=== PATIENT | female | born 1940 | race Caucasian/White ===

== ENCOUNTER 2018-12-31 19:16 | Inpatient (IN) | payer MEDICARE, BC ==
[~2018-12-31] VITALS: Ht 162.6 cm; Wt 86.2 kg
[~2018-12-31 19:16] MED LIST: CETIRIZINE HCL5 MG PO; HYDROCODONE-APA1 TAB PO; NORVASC10 MG PO; PRAVACHOL20 MG PO; PRILOSEC10 MG PO; PRINIVIL20 MG PO
[2018-12-31 20:01] LABS: BASOPHILS 0.4 % (0-2); EOSINOPHILS 1.7 % (0-7); HEMATOCRIT 40.9 % (36.0-48.0); HEMOGLOBIN 13.3 g/dL (12-16); IMMATURE GRANULOCYTES 0.3 % (0-5); LYMPHOCYTES 17.1 % (15-50); MCHC 32.5 g/dL (31.0-37.0); MCV 83.1 fL (80.0-100.0); MEAN PLATELET VOLUME 9.7 fL (7.4-10.4); MONOCYTES 6.3 % (2-11); NEUTROPHILS 74.2 % (40-80); PLATELET COUNT 306 10x3/uL (130-400); RBC 4.92 10x6/uL (4.00-5.40); RDW 14.3 % (11.5-14.5)
[2018-12-31 20:15] LABS: ALBUMIN 3.9 g/dL (3.4-5.0); ALKALINE PHOSPHATASE 127 U/L (46-116); ALT (SGPT) 17 U/L (10-68); BILIRUBIN - TOTAL 0.42 mg/dL (0.2-1.3); CALC OSMOLALITY 281 mosm/kg (275-300); CALCIUM 9.6 mg/dL (8.5-10.1); CARBON DIOXIDE 25.7 mmol/L (21.0-32.0); CHLORIDE - SERUM 103 mmol/L (98-107); CREATININE - SERUM 0.7 mg/dL (0.6-1.3); GLUCOSE 185 mg/dL (74-106); POTASSIUM - SERUM 3.4 mmol/L (3.5-5.1); PROTEIN - SERUM 8.2 g/dL (6.4-8.2); SODIUM 140 mmol/L (136-145); UREA NITROGEN 7 mg/dL (7-18); eGFR NON AFRICAN AMERICAN 86 mL/min (90-120)
--- NOTE | 2018-12-31 23:50 | NUR ---
RECEIVED PT VIA STRETCHER FROM ER. SLIGHTLY SEDATED. STATES SHE HASNT HAD A BM IN 12 DAYS. FALLING ASLEEP DURING INTERVIEW. ACCOMPANIED BY AUADRIENNE AND OTHER FAMILY. DENIES PAIN AT THIS TIME. NS @ 100 MLHR INFUSING IN RT AC. ROSY ALARM IN USE FOR PT SAFETY. RESP EVEN AND NONLABORED. SR ELEVATED X2. CL IN REACH.
[2019-01-01] VITALS (13 sets, daily range): BP systolic 117–147; BP diastolic 56–88; Ht 162.6 cm; Wt 86.2 kg
[2019-01-01 04:46] LABS: BASOPHILS 0.4 % (0-2); EOSINOPHILS 0.9 % (0-7); HEMATOCRIT 39.2 % (36.0-48.0); HEMOGLOBIN 12.4 g/dL (12-16); IMMATURE GRANULOCYTES 0.2 % (0-5); LYMPHOCYTES 25.9 % (15-50); MCH 26.5 pg (26.0-34.0); MCHC 31.6 g/dL (31.0-37.0); MCV 83.8 fL (80.0-100.0); MEAN PLATELET VOLUME 9.9 fL (7.4-10.4); MONOCYTES 9.3 % (2-11); NEUTROPHILS 63.3 % (40-80); PLATELET COUNT 298 10x3/uL (130-400); RBC 4.68 10x6/uL (4.00-5.40); RDW 14.4 % (11.5-14.5)
[2019-01-01 04:56] LABS: INR 1.06 (0.85-1.17); PROTIME 13.3 SECONDS (11.6-15.0)
[2019-01-01 04:59] LABS: CALC OSMOLALITY 280 mosm/kg (275-300); CALCIUM 8.7 mg/dL (8.5-10.1); CARBON DIOXIDE 27.6 mmol/L (21.0-32.0); CHLORIDE - SERUM 105 mmol/L (98-107); CREATININE - SERUM 0.6 mg/dL (0.6-1.3); GLUCOSE 120 mg/dL (74-106); MAGNESIUM - SERUM 2.4 mg/dL (1.8-2.4); PHOSPHOROUS 3.5 mg/dL (2.5-4.9); POTASSIUM - SERUM 3.3 mmol/L (3.5-5.1); SODIUM 142 mmol/L (136-145); UREA NITROGEN 5 mg/dL (7-18); eGFR NON AFRICAN AMERICAN > 90 mL/min (90-120)
--- NOTE | 2019-01-01 11:43 | NUR ---
MULTIPLE FAMILY IN ROOM. WOULD LIKE TO SEE A DR ABOUT SURGERY. TOLD THEM BREVING WOULD BE ROUNDING AFTER NOON. CL IN REACH. DENIES NEEDS AT THIS TIME. AUDRA
[2019-01-01 11:54] LABS: HEMATOCRIT 36.6 % (36.0-48.0); HEMOGLOBIN 11.4 g/dL (12-16); MCH 26.3 pg (26.0-34.0); MCHC 31.1 g/dL (31.0-37.0); MCV 84.5 fL (80.0-100.0); RBC 4.33 10x6/uL (4.00-5.40); RDW 14.4 % (11.5-14.5); WBC 9.4 10x3/uL (4.8-10.8)
[2019-01-01 11:59] LABS: APTT 31.5 SECONDS (22.8-39.4); INR 1.11 (0.85-1.17); PROTIME 13.8 SECONDS (11.6-15.0)
[2019-01-01 12:04] LABS: % SATURATION 8 % (15-55); IRON 26 ug/dl (35-150); TOTAL IRON BIND CAPACITY 321 ug/dl (260-445); UNSAT IRON BIND CAPACITY 295 ug/dl (150-375)
--- NOTE | 2019-01-01 19:30 | NUR ---
REPORT RECEIVED FROM NURSE SYLWIA. INITIAL ASSESSMENT COMPLETE PT SLEEPY BUT EASILY AROUSEABLE ORIENTED TIMES 4. DENIES PAIN OR SOB STATES "IM JUST SLEEPY". RESP EVEN NONLABORED SHALLOW ENCOURAGED TO TCDB AND INSTRUCTED ON HOW TO SPLINT ABD SURGICAL SITE TO HELP WITH DISCOMFORT. ON 4 LPM O2 PER NC. O2 SAT 94%. BREATH SOUNDS CLEAR DIMINISHED BASILAR. ABD QUIET NEW COLOSTOMY NOTED STOMA BRIGHT PINK AND MOIST MID UPPER ABD WITH BAG INTACT SOME GAS AND SMALL AMOUNT OF LIQUID BROWN STOOL NOTED. JONES PATENT WITH YELLOW URINE IN TUBING AND BSD. SKIN W/D INTACT. SIDERAILS UP TIMES 2 FOR BED MOBILITY AND SAFETY. CALL LIGHT IN REACH. CM READING SR WITH ALARMS ON AND AUDIBLE.
--- NOTE | 2019-01-01 20:00 | NUR ---
FAMILY AT BEDSIDE FOR VISITATION TALKING WITH PT. UPDATE GIVEN AND QUESTIONS ANSWERED. PT TALKING WITH FAMILY BUT DOES DOSE OFF STILL SLEEPY
--- NOTE | 2019-01-01 22:00 | NUR ---
PTT RESULTED SEE NO CHANGE PER PROTOCOL SEE IV FLOWSHEET AND EMAR. WILL CHECK LABS IN AM. PT RESTING QUIETLY WITH EYES CLOSED VSS DENIES PAIN STILL SLEEPY.
--- NOTE | 2019-01-01 23:00 | NUR ---
REASSESSMENT MADE NO CHANGES PT DENIES PAIN ONLY C/O SORENESS IN ABD. VSS SEE ASSESSMENT FLOWSHEET
[2019-01-02] VITALS (13 sets, daily range): BP systolic 92–144; BP diastolic 63–77
--- NOTE | 2019-01-02 01:00 | NUR ---
CHECKING ON PT RESTING WITH EYES CLOSED NO DISTRESS NOTED VSS
--- NOTE | 2019-01-02 03:00 | NUR ---
REASSESSMENT MADE NO CHANGES PT DENIES PAIN VS
--- NOTE | 2019-01-02 05:00 | NUR ---
SON AT BEDSIDE UPDATE GIVEN
[2019-01-02 05:10] LABS: APPEARANCE CLOUDY (CLEAR); COLOR YELLOW (YELLOW)
[2019-01-02 05:11] LABS: AMORPHOUS SEDIMENT >1+ /lpf (NONE SEEN); BACTERIA MANY /hpf (NONE SEEN); BILIRUBIN NEGATIVE (NEGATIVE); EPITHELIAL CELLS 0-5 /hpf (0-5); GLUCOSE 50 mg/dL (NEGATIVE); KETONE LARGE mg/dL (NEGATIVE); NITRITE NEGATIVE (NEGATIVE); PROTEIN NEGATIVE (NEGATIVE); UROBILINOGEN NORMAL (NORMAL); WHITE CELLS - URINE 0-5 /hpf (0-5)
[2019-01-02 05:39] LABS: BASOPHILS 0.1 % (0-2); EOSINOPHILS 0 % (0-7); HEMATOCRIT 33.2 % (36.0-48.0); HEMOGLOBIN 10.4 g/dL (12-16); IMMATURE GRANULOCYTES 0.3 % (0-5); LYMPHOCYTES 9.2 % (15-50); MCH 26.4 pg (26.0-34.0); MCHC 31.3 g/dL (31.0-37.0); MCV 84.3 fL (80.0-100.0); MEAN PLATELET VOLUME 9.8 fL (7.4-10.4); MONOCYTES 9.7 % (2-11); NEUTROPHILS 80.7 % (40-80); PLATELET COUNT 270 10x3/uL (130-400); RBC 3.94 10x6/uL (4.00-5.40); RDW 14.4 % (11.5-14.5); WBC 13.4 10x3/uL (4.8-10.8)
[2019-01-02 05:53] LABS: ANION GAP 10.3 mmol/L (8-16); CALCIUM 8.1 mg/dL (8.5-10.1); CARBON DIOXIDE 29.4 mmol/L (21.0-32.0); MAGNESIUM - SERUM 1.8 mg/dL (1.8-2.4); PHOSPHOROUS 2.7 mg/dL (2.5-4.9); POTASSIUM - SERUM 3.7 mmol/L (3.5-5.1)
--- NOTE | 2019-01-02 06:00 | NUR ---
DR LU AT BEDSIDE SPEAKING WITH PT AND SON. INFORMED THE STAFF GENETIC COUNSELOR MORPHINE HE HAD ORDERED LAST PM WAS NOT STARTED PT HAD DENIED PAIN AND REFUSED PAIN MED SAYING SHE WAS SORE BUT NOT IN PAIN. NO S/S OF PAIN OR DISCOMFORT. HE STATED GOOD HE WOULD JUST START HER ON SOMETHING ELSE PRN INSTEAD OF STAFF GENETIC COUNSELOR
--- NOTE | 2019-01-02 06:00 | NUR ---
PT AND SON ASKING IF PT WAS BEING TRANSFERRED TO FLOOR TODAY I TOLD THEM NOT SURE BREVING CAME IN LOOKED AT ABD THEN LEFT UNIT AWAITING HIS ORDERS
[2019-01-02 06:07] LABS: CREATININE - SERUM 0.8 mg/dL (0.6-1.3)
--- NOTE | 2019-01-02 07:05 | NUR ---
PTT IS 103.9. PER HEPARIN GTT PROTOCOL, WAS PAUSED FOR 30 MIN THEN RATE DECREASED FROM 1300 U/H TO 1100 U/H. RECHECK SCHEDULED FOR 6H POST. NO ACUTE DISTRESS NOTED. PT UP IN BED AWAKE. DENIES ANY NEEDS. WILL CONTINUE PLAN OF CARE.
--- NOTE | 2019-01-02 09:40 | NUR ---
UP IN BED AWAKE AT THIS TIME VISITING WITH FAMILY. NO ACUTE DISTRESS NOTED. PT DENIES ANY NEEDS. CALL LIGHT IN REACH. WILL CONTINUE PLAN OF CARE.
--- NOTE | 2019-01-02 11:47 | NUR ---
UP IN BED VISITING WITH FAMILY AT THIS TIME. NO ACUTE DISTRESS NOTED. VSS. WILL CONTINUE PLAN OF CARE.
--- NOTE | 2019-01-02 13:30 | NUR ---
NOTED PTT IS 44.4, HEPARIN GTT RATE INCREASED 100 U/H FROM 1100 U/H TO 1200 U/H. RECHECK SCHEDULED FOR 6H POST DRAW TIME. NO ACUTE DISTRESS NOTED. WILL CONTNIUE PLAN OF CARE.
--- NOTE | 2019-01-02 15:59 | NUR ---
BED BATH PROVIDED AT THIS TIME USING HIBICLENS. TOTAL LINEN CHANGE ALSO PROVIDED. JONES CARE PROVIDED USING HIBICLENS. FAMILY AT BEDSIDE. NO ACUTE DISTRESS NOTED. PT ALSO NOTED TO PASS GAS FROM COLOSTOMY WITH SMALL AMOUNT OF BROWN LIQUID DRAINING TO OSTOMY COLLECTION SYSTEM. NO ACUTE DISTRESS NOTED. WILL CONTINUE PLAN OF CARE.
--- NOTE | 2019-01-02 16:44 | NUR ---
NOTED PT TO GO TO ROOM 2229, REPORT CALLED TO RECIEVING NURSE. WILL TRANSFER PT SHORTLY.
--- NOTE | 2019-01-02 17:24 | NUR ---
TRANSFERRED TO ROOM 2229 AT THIS TIME VIA BED ACCOMPANIED BY HOSPITAL STAFF WITH ALL PERSONAL ITEMS. NO ACUTE DISTRESS NOTED. VSS. FAMILY AT BEDSIDE. NO FURTHER ACTIONS.
--- NOTE | 2019-01-02 17:29 | NUR ---
JUST REC'D PT TO ROOM 2230 AWAKE AND ALERT. RESP EVEN AND UNLABORED WITH NO DISTRESS NOTED WITH O2 IN USE VIA N/C @ 2L/M. CAN EXPRESS NEEDS AND WANTS. NO C/O NOTED OR VOICED. HAS RIGHT IJ WITH NS @ 100 INFUSING AT THIS TIME. FAMILY AND C/L IN REACH AT BEDSIDE.
--- NOTE | 2019-01-02 19:20 | NUR ---
LAB RESULTS RECIEVED PTT OF 151, HEPRIN DRIP STOPPED AT THIS TIME PER HEPRIN PROTOCOL FOR 1 HR. RESTING IN BED FAMILY MEMBER AT BEDSIDE, ABD SLIGHTLY DISTENED COLOSTOMY BAG INTACT STOMA BEEFY RED WITH SMALL AMOT OF DARK LIQUID NOTED IN BAG AND SM AMOUNT OF SOFT BROWN STOOL AT STOMA, STATES THAT IS THE FIRST STOOL PASSED SINCE COLOSTOMY PLACED. CALL LIGHT IN REACH
--- NOTE | 2019-01-02 20:30 | NUR ---
HEPRIN DRIP RESTARTED AT 9ML/HR DECREASED FROM 12ML PER HR PER HEPRIN PROTOCOL
[2019-01-03] VITALS: BP 130/69
[2019-01-03 02:58] LABS: BASOPHILS 0.3 % (0-2); EOSINOPHILS 0.2 % (0-7); HEMATOCRIT 31.3 % (36.0-48.0); HEMOGLOBIN 9.6 g/dL (12-16); IMMATURE GRANULOCYTES 0.4 % (0-5); LYMPHOCYTES 10.9 % (15-50); MCH 25.9 pg (26.0-34.0); MCHC 30.7 g/dL (31.0-37.0); MCV 84.6 fL (80.0-100.0); MONOCYTES 10.9 % (2-11); NEUTROPHILS 77.3 % (40-80); PLATELET COUNT 258 10x3/uL (130-400); RDW 14.7 % (11.5-14.5); WBC 11.9 10x3/uL (4.8-10.8)
[2019-01-03 03:18] LABS: CALC OSMOLALITY 275 mosm/kg (275-300); CARBON DIOXIDE 27.9 mmol/L (21.0-32.0); CHLORIDE - SERUM 105 mmol/L (98-107); CREATININE - SERUM 0.6 mg/dL (0.6-1.3); GLUCOSE 127 mg/dL (74-106); MAGNESIUM - SERUM 1.9 mg/dL (1.8-2.4); POTASSIUM - SERUM 3.3 mmol/L (3.5-5.1); SODIUM 138 mmol/L (136-145); UREA NITROGEN 8 mg/dL (7-18); eGFR NON AFRICAN AMERICAN > 90 mL/min (90-120)
[2019-01-03 03:19] LABS: CALCIUM 8.4 mg/dL (8.5-10.1); PHOSPHOROUS 1.9 mg/dL (2.5-4.9)
[2019-01-03 04:00] VITALS: BP 111/57
--- NOTE | 2019-01-03 04:24 | NUR ---
CALL TO LAB FOR RESULTS OF PTT, REPORTED 76.1, NO CHANGES TO HEPRIN DRIP AT THIS TIME PER PROTOCOL
--- NOTE | 2019-01-03 09:07 | NUR ---
PT ALERT X 4. BREATH SOUNDS CLEAR BILAT. CENTRAL LINE TO RIGHT IJ, PATENT, DRESSING CDI, CHANGED 01/01/19. COLOSTOMY TO RIGHT UPPER QUADRANT, PLACED 01/01/19, PASSING LIQUID STOOL. PT REPORTIN PAIN OF 6/10, MEDICATED PER ORDERS, WILL MONITOR. FAMILY IN ROOM. BED LOW, CALL LIGHT IN REACH. NO OTHER NEEDS AT THIS TIME.
[2019-01-03 09:25] VITALS: BP 108/54
[2019-01-03 13:00] VITALS: BP 111/47
[2019-01-03 18:20] VITALS: BP 110/48
[2019-01-03 20:00] VITALS: BP 132/67
--- NOTE | 2019-01-03 20:00 | NUR ---
ALERT RESTING IN BED, ABD SOFT COLOSTOMY NOTED TO BE DRAINING LIQUID STOOL, STOMA BEEFY RED, JONES CLAMPED SINCE 1930 INSTRUCTED TO CALL WHEN FEEL LIKE BLADDER GETTING FULL AND NEED TO VOID, SEE SHIFT ASSESSMENT CALL LIGHT IN REACH
--- NOTE | 2019-01-03 20:45 | NUR ---
JONES CATH UNCLAMPED WITH RETURN OF 350CC CLEAR YELLOW URINE, DC'D AT THIS TIME
[2019-01-04] VITALS: BP 131/59
[2019-01-04 04:00] VITALS: BP 143/73
--- NOTE | 2019-01-04 05:30 | NUR ---
C/O FEELING BLOATED AND ABD MORE TENDER, ABD NOTED TO BE DISTENDED AND FIRM, SMALL AMT OF LIQUID STOOL NOTED IN COLOSTOMY BAG, MINIMAL GAS IN BAG, INSTRUCTED NEED TO TRY TO BE UP MOVING AROUND MORE TODAY. FAMILY AT BEDSIDE
[2019-01-04 07:08] LABS: BASOPHILS 0.2 % (0-2); HEMATOCRIT 34.3 % (36.0-48.0); HEMOGLOBIN 10.7 g/dL (12-16); IMMATURE GRANULOCYTES 0.4 % (0-5); LYMPHOCYTES 14.5 % (15-50); MCH 26.1 pg (26.0-34.0); MCHC 31.2 g/dL (31.0-37.0); MCV 83.7 fL (80.0-100.0); MEAN PLATELET VOLUME 10.5 fL (7.4-10.4); MONOCYTES 9.9 % (2-11); PLATELET COUNT 286 10x3/uL (130-400); RDW 14.7 % (11.5-14.5); WBC 9.8 10x3/uL (4.8-10.8)
[2019-01-04 07:32] LABS: CALC OSMOLALITY 276 mosm/kg (275-300); CALCIUM 8.4 mg/dL (8.5-10.1); CARBON DIOXIDE 27.5 mmol/L (21.0-32.0); CHLORIDE - SERUM 105 mmol/L (98-107); CREATININE - SERUM 0.5 mg/dL (0.6-1.3); GLUCOSE 118 mg/dL (74-106); MAGNESIUM - SERUM 1.9 mg/dL (1.8-2.4); PHOSPHOROUS 2.2 mg/dL (2.5-4.9); SODIUM 140 mmol/L (136-145); UREA NITROGEN 5 mg/dL (7-18); eGFR NON AFRICAN AMERICAN > 90 mL/min (90-120)
--- NOTE | 2019-01-04 07:46 | NUR ---
REC'D IN BED WITH EYES CLOSED EASILY TO AROUSED WHEN NAME IS CALLED. RESP EVEN AND UNLABORED WITH NO DISTRESS NOTED. CAN VOICE NEEDS AND WANTS. ASSESSMENT COMPLETED. C/L IN REACH AT BEDSIDE.
[2019-01-04 08:45] VITALS: BP 160/70
--- NOTE | 2019-01-04 11:38 | NUR ---
SPOKE WITH SAWMILL RELIEF WORKER ABOUT GETTING PT SOMETHING FOR GAS AND REC'D NEW ORDERS FOR MYLANTA 30 ML Q 4 HRS PRN. C/L IN REACH AT BEDSIDE.
--- NOTE | 2019-01-04 12:23 | NUR ---
PT WAS GIVEN MYLANTA THEN HAD EMESIS X 1 REC'D NEW ORDERS FOR PHEN. 25 MG IM X 1 DOSE AND KUB. WILL CONTINUE TO OBSERVE. FAMILY AT BEDSIDE.
[2019-01-04 13:02] VITALS: BP 142/76
--- NOTE | 2019-01-04 14:50 | NUR ---
NUTRITION F/U DIET ADVANCED TO FULL LIQUID. WILL MONITOR PO INTAKE, DIET ADVANCEMENT. RD FOLLOWING
--- NOTE | 2019-01-04 14:59 | NUR ---
I have reviewed this patient and I concur with the Shift Assessment completed by the Licensed Practical Nurse today this shift.
--- NOTE | 2019-01-04 16:20 | NUR ---
CONSULT FOR OSTOMY TEACHING. PT IS VERY DROWSY, BUT SPOKE WITH DAUGHTER. PROVIDED INFORMATIONAL BOOKLET ON LIVING WITH AN OSTOMY. DAUGHTER STATES THAT PT'S GRAND DAUGHTER IS A NURSE AND SHE WILL BE ASSISTING WITH CARE/ WOUND CARE WILL MONITOR.
[2019-01-04 16:56] VITALS: BP 120/75
--- NOTE | 2019-01-04 17:26 | MORECARE ---
CASE MANAGEMENT DISCHARGE SUMMARY PATIENT: ELY PEREZ UNIT: [id number] ADM DATE: 12/31/18 AGE: 78 : 42 SEX: F ROOM/BED: D.2229 AUTHOR: MERLENE GARCIA PHYSICIAN: REFERRING PHYSICIAN: SHONNA PURCELL MD DATE OF SERVICE: 01/04/19 Discharge Plan Patient Name: ELY PEREZ [facility] [facility] 1940 Planned Disposition: Home Anticipated Discharge Date: Discharge Date: Expected LOS: Initial Reviewer: [email or web address] Initial Review Date: 01/04/2019 Generated: 01/04/19 6:25 pm Comments DCP- Discharge Planning Updated by [email or web address]: Kimberly Navarrete on 01/04/19 4:[address] CM went to room to discuss discharge planning, patient is asleep and family member has asked me to return tomorrow. CM will meet with family in the morning to discuss discharge planning/needs. Patient Name: EYL PEREZ Page [id number] at 1726 All edits/amendments must be made on the electronic document DICTATION DATE: 01/04/191724 FEED HOUSE SUPERVISOR: IVONNE 01/04/191724 RPT#: [id number] DC DATE: STATUS: ADM IN [facility] [address] [place] [address] END OF REPORT
[2019-01-04 20:00] VITALS: BP 156/88
[2019-01-05] VITALS (14 sets, daily range): BP systolic 126–164; BP diastolic 62–86
--- NOTE | 2019-01-05 00:26 | NUR ---
PATIENT IN BED WITH FAMILY AT BEDSIDE NO NEEDS NOTED NO NEEDS STATED NO S/S OF DISTRESS. CALL LIGHT IN REACH.
[2019-01-05 05:39] LABS: CALCIUM 8.4 mg/dL (8.5-10.1); CARBON DIOXIDE 28.4 mmol/L (21.0-32.0); CHLORIDE - SERUM 105 mmol/L (98-107); CREATININE - SERUM 0.6 mg/dL (0.6-1.3); GLUCOSE 127 mg/dL (74-106); INR 1.14 (0.85-1.17); PROTIME 14.1 SECONDS (11.6-15.0); SODIUM 144 mmol/L (136-145); eGFR NON AFRICAN AMERICAN > 90 mL/min (90-120)
[2019-01-05 05:40] LABS: APTT 42.6 SECONDS (22.8-39.4)
[2019-01-05 05:42] LABS: CALC OSMOLALITY 287 mosm/kg (275-300); PHOSPHOROUS 2.8 mg/dL (2.5-4.9); UREA NITROGEN 9 mg/dL (7-18)
[2019-01-05 05:43] LABS: POTASSIUM - SERUM 2.8 mmol/L (3.5-5.1)
--- NOTE | 2019-01-05 06:25 | NUR ---
LAB CALLED WIT A POTASSIUM OF 2.8 PROTOCOL IS 10MEQ IV EVERY HOURE X 6 WHEN NPO. BAG # 1 STARTED AT 0550AM . FIORE TO NUMERICAL CONTROL TOOL PROGRAMMER VICKI SUNSHINE MD RETRUNED CALL INFORMED THAT PT. ON PROTOCOL AND BAG #1 OF POTASSIUM HUNG AT 0555 PER PROTOCOL NO NEW ORDERS GIVEN.
--- NOTE | 2019-01-05 06:32 | NUR ---
PT HAS HAD N/V X2 TONIGHT. ZOFRAN GIVEN PER ORDERS.
[2019-01-05 06:49] LABS: BASOPHILS 0.3 % (0-2); EOSINOPHILS 1.4 % (0-7); HEMATOCRIT 37.8 % (36.0-48.0); HEMOGLOBIN 11.8 g/dL (12-16); IMMATURE GRANULOCYTES 0.5 % (0-5); LYMPHOCYTES 15.2 % (15-50); MCH 26.3 pg (26.0-34.0); MCHC 31.2 g/dL (31.0-37.0); MCV 84.2 fL (80.0-100.0); MEAN PLATELET VOLUME 10.2 fL (7.4-10.4); MONOCYTES 10.9 % (2-11); NEUTROPHILS 71.7 % (40-80); RBC 4.49 10x6/uL (4.00-5.40); WBC 9.3 10x3/uL (4.8-10.8)
[2019-01-05 06:58] LABS: PLATELET COUNT 353 10x3/uL (130-400)
--- NOTE | 2019-01-05 09:56 | MORECARE ---
CASE MANAGEMENT DISCHARGE SUMMARY PATIENT: ELY MAY UNIT: [id number] ADM DATE: 12/31/18 AGE: 78 : 42 SEX: F ROOM/BED: D.2229 AUTHOR: JOSEDOC PHYSICIAN: REFERRING PHYSICIAN: SHONNA PURCELL MD DATE OF SERVICE: 01/05/19 Discharge Plan Patient Name: ELY MAY Facility: [facility]:[place] : 1940 Planned Disposition: Home with Home Health Anticipated Discharge Date: Discharge Date: Expected LOS: Initial Reviewer: [email or web address] Initial Review Date: 01/04/2019 Generated: 01/05/19 10:56 am Comments DCP- Discharge Planning Updated by [email or web address]: Kimberly Navarrete on 01/05/19 8:[address] Patient Name: ELY MAY Admission Status: ER Accout number: [id number] Admission Date: 12-31-2018 : 1940 Admission Diagnosis:UNSPECIFIED ABDOMINAL PAIN Attending: SHONNA PURCELL Current LOS: 5 Anticipated DC Date: Planned Disposition: Home with Home Health Primary Insurance: MEDICARE A & B Discharge Planning Comments: CM met with patient and her daughter in law in the room to discuss discharge planning/needs. Patient is up in the chair and drowsy and verbal permission given to speak with EUGENE Emerson) concerning discharge needs. She states patient lives at home with her . States she is independent with all ADL's and AIDL's. States she does have a BSC and walker at home but does not use them. States her grand daughter is a nurse and will assist with her ostomy care. I discussed availability of inpatient rehab, SNF, home health and additional DME needs. States she would like home health at discharge. I gave her the AMANDA form on home health, EUGENE is unsure which one she will pick, she states she will ask the grand daughter. I gave her my card and number to call me when she knows the HH service she would like to use. CM will continue to follow and assist with discharge planning/needs. Finger Buffs Assembler: Kimberly Navarrete DCP- Discharge Planning Updated by [email or web address]: Kimberly Navarrete on 01/04/19 4:[address] CM went to room to discuss discharge planning, patient is asleep and family member has asked me to return tomorrow. CM will meet with family in the morning to discuss discharge planning/needs. DCPIA - Discharge Planning Initial Assessment Updated by [email or web address]: Kimberly Navarrete on 01/05/19 9:52 am * Is the patient Alert and Oriented? Yes * How many steps to enter\exit or inside your home? 2/2 * PCP Dr. Mims * [facility] in [facility] * Preadmission Environment Home with Family * ADLs Independent * Equipment Bedside Commode Walker * List name and contact numbers for known caregivers / representatives who currently or will assist patient after discharge: Piyush May - son - [phone] Sonam Medel [facility] - [phone] * Verbal permission to speak to the caregivers and representatives has been obtained from the patient. Yes * Community resources currently utilized None * Additional services required to return to the preadmission environment? Yes * Can the patient safely return to the preadmission environment? Yes * Has this patient been hospitalized within the prior 30 days at any hospital? No Last DP export: 01/04/19 4:26 p Patient Name: ELY MAY Page [phone] at 0956 All edits/amendments must be made on the electronic document DICTATION DATE: 01/05/19955 ELECTRIFIER OPERATOR: IVONNE 01/05/19955 RPT#: [id number] DC DATE: STATUS: ADM IN [facility] [address] [place] [address] END OF REPORT
--- NOTE | 2019-01-05 17:26 | NUR ---
I have reviewed this patient and I concur with the Shift Assessment completed by the Licensed Practical Nurse today this shift.
[2019-01-06 04:00] VITALS: BP 149/71
[2019-01-06 06:53] LABS: BASOPHILS 0.5 % (0-2); EOSINOPHILS 4.3 % (0-7); HEMATOCRIT 33.8 % (36.0-48.0); HEMOGLOBIN 10.7 g/dL (12-16); IMMATURE GRANULOCYTES 0.7 % (0-5); MCH 26.6 pg (26.0-34.0); MCHC 31.7 g/dL (31.0-37.0); MCV 84.1 fL (80.0-100.0); MEAN PLATELET VOLUME 9.9 fL (7.4-10.4); MONOCYTES 14.5 % (2-11); PLATELET COUNT 329 10x3/uL (130-400); RBC 4.02 10x6/uL (4.00-5.40); WBC 8.8 10x3/uL (4.8-10.8)
[2019-01-06 06:54] LABS: CALC OSMOLALITY 275 mosm/kg (275-300); CALCIUM 8.2 mg/dL (8.5-10.1); CARBON DIOXIDE 28.8 mmol/L (21.0-32.0); CHLORIDE - SERUM 105 mmol/L (98-107); CREATININE - SERUM 0.5 mg/dL (0.6-1.3); GLUCOSE 106 mg/dL (74-106); MAGNESIUM - SERUM 1.8 mg/dL (1.8-2.4); POTASSIUM - SERUM 3.4 mmol/L (3.5-5.1); SODIUM 139 mmol/L (136-145); eGFR NON AFRICAN AMERICAN > 90 mL/min (90-120)
[2019-01-06 06:56] LABS: PHOSPHOROUS 1.9 mg/dL (2.5-4.9); UREA NITROGEN 6 mg/dL (7-18)
[2019-01-06 09:44] VITALS: BP 140/73
--- NOTE | 2019-01-06 11:31 | MORECARE ---
CASE MANAGEMENT DISCHARGE SUMMARY PATIENT: ELY PEREZ UNIT: [id number] ADM DATE: 12/31/18 AGE: 78 : 42 SEX: F ROOM/BED: D.2229 AUTHOR: JOSEDOC PHYSICIAN: REFERRING PHYSICIAN: SHONNA PURCELL MD DATE OF SERVICE: 01/06/19 Discharge Plan Patient Name: ELY PEREZ Facility: [facility]:[place] : 1940 Planned Disposition: Home with Home Health Anticipated Discharge Date: Discharge Date: Expected LOS: Initial Reviewer: [email or web address] Initial Review Date: 01/04/2019 Generated: 01/06/19 12:31 pm DCP- Discharge Planning Updated by [id number]: Kimberly Navarrete on 01/05/19 8:[address] Patient Name: ELY PEREZ Admission Status: ER Accout number: [id number] Admission Date: 12-31-2018 : 1940 Admission Diagnosis:UNSPECIFIED ABDOMINAL PAIN Attending: SHONNA PURCELL Current LOS: 5 Anticipated DC Date: Planned Disposition: Home with Home Health Primary Insurance: MEDICARE A & B Discharge Planning Comments: CM met with patient and her daughter in law in the room to discuss discharge planning/needs. Patient is up in the chair and drowsy and verbal permission given to speak with EUGENE Emerson) concerning discharge needs. She states patient lives at home with her . States she is independent with all ADL's and AIDL's. States she does have a BSC and walker at home but does not use them. States her grand daughter is a nurse and will assist with her ostomy care. I discussed availability of inpatient rehab, SNF, home health and additional DME needs. States she would like home health at discharge. I gave her the AMANDA form on home health, EUGENE is unsure which one she will pick, she states she will ask the grand daughter. I gave her my card and number to call me when she knows the HH service she would like to use. CM will continue to follow and assist with discharge planning/needs. Manager Financial Systems: Kimberly Navarrete DCP- Discharge Planning Updated by [email or web address]: Kimberly Navarrete on 01/04/19 4:[address] CM went to room to discuss discharge planning, patient is asleep and family member has asked me to return tomorrow. CM will meet with family in the morning to discuss discharge planning/needs. DCPIA - Discharge Planning Initial Assessment Updated by [email or web address]: Kimberly Navarrete on 01/05/19 9:52 am * Is the patient Alert and Oriented? Yes * How many steps to enter\exit or inside your home? 2/2 * PCP Dr. Mims * [facility] in [facility] * Preadmission Environment Home with Family * ADLs Independent * Equipment Bedside Commode Walker * List name and contact numbers for known caregivers / representatives who currently or will assist patient after discharge: Piyush Medel son - [phone] Sonam KNIGHT - [phone] * Verbal permission to speak to the caregivers and representatives has been obtained from the patient. Yes * Community resources currently utilized None * Additional services required to return to the preadmission environment? Yes * Can the patient safely return to the preadmission environment? Yes * Has this patient been hospitalized within the prior 30 days at any hospital? No External Providers External Provider: REBELEllie [facility] Next Contact Date: Service Request Date: Service Type: Resolution: Reviewer: Comments: Coverage Notice Reviewer: [email or web address] - Kimberly Navarrete Notice Issued Date-Time: 01/06/2019 11:16 Notice Type: Patient Choice Letter Notice Delivered To: Patient Relationship to Patient: Self Diet Counselor Name: Delivery Method: HAND - Hand Delivered Yolanda Days: Prior Verbal Notification: Recipient Understood Notice: Yes Recipient Signature: Yes Med Rec Note Co-signed by Attending: Coverage Notice Comment: [facility] for [facility] in [place]. Family signed per request Last DP export: 01/05/19 8:56 a Patient Name: ELY PEREZ Page [phone] at 1131 All edits/amendments must be made on the electronic document DICTATION DATE: 01/06/19 1131 REFUSE COLLECTOR: IVONNE 01/06/19 1131 RPT#: [id number] DC DATE: STATUS: ADM IN [facility] [address] [place] [address] END OF REPORT
--- NOTE | 2019-01-06 11:38 | MORECARE ---
CASE MANAGEMENT DISCHARGE SUMMARY PATIENT: ELY MAY UNIT: [id number] ADM DATE: 12/31/18 AGE: 78 : 42 SEX: F ROOM/BED: D.2229 AUTHOR: JOSEDOC PHYSICIAN: REFERRING PHYSICIAN: SHONNA PURCELL MD DATE OF SERVICE: 01/06/19 Discharge Plan Patient Name: ELY MAY Facility: [facility]:[place] : 1940 Planned Disposition: Home with Home Health Anticipated Discharge Date: Discharge Date: Expected LOS: Initial Reviewer: [email or web address] Initial Review Date: 01/04/2019 Generated: 01/06/19 12:38 pm Comments DCP- Discharge Planning Updated by [email or web address]: Kimberly Navarrete on 01/06/19 10:[address] Patient's family states they would like [facility] in [place] for home health. I called and spoke to [place] and clinical faxed. CM will continue to follow and assist with discharge planning/needs. DCP- Discharge Planning Updated by [email or web address]: Kimberly Navarrete on 01/05/19 8:[address] Patient Name: ELY MAY Admission Status: ER Accout number: [id number] Admission Date: 12-31-2018 : 1940 Admission Diagnosis:UNSPECIFIED ABDOMINAL PAIN Attending: SHONNA PURCELL Current LOS: 5 Anticipated DC Date: Planned Disposition: Home with Home Health Primary Insurance: MEDICARE A & B Discharge Planning Comments: CM met with patient and her daughter in law in the room to discuss discharge planning/needs. Patient is up in the chair and drowsy and verbal permission given to speak with EUGENE Emerson) concerning discharge needs. She states patient lives at home with her . States she is independent with all ADL's and AIDL's. States she does have a BSC and walker at home but does not use them. States her grand daughter is a nurse and will assist with her ostomy care. I discussed availability of inpatient rehab, SNF, home health and additional DME needs. States she would like home health at discharge. I gave her the AMANDA form on home health, EUGENE is unsure which one she will pick, she states she will ask the grand daughter. I gave her my card and number to call me when she knows the HH service she would like to use. CM will continue to follow and assist with discharge planning/needs. Content Production Specialist: Kimberly Rosalba DCP- Discharge Planning Updated by [email or web address]: Kimberly Rosalba on 01/04/19 4:[address] CM went to room to discuss discharge planning, patient is asleep and family member has asked me to return tomorrow. CM will meet with family in the morning to discuss discharge planning/needs. DCPIA - Discharge Planning Initial Assessment Updated by [id number]: Kimberly Rosalba on 01/05/19 9:52 am * Is the patient Alert and Oriented? Yes * How many steps to enter\exit or inside your home? 08/29 * PCP Dr. Mims * [facility] in [facility] * Preadmission Environment Home with Family * ADLs Independent * Equipment Bedside Commode Walker * List name and contact numbers for known caregivers / representatives who currently or will assist patient after discharge: Piyush May [facility] - [phone] Sonam May [facility] - [phone] * Verbal permission to speak to the caregivers and representatives has been obtained from the patient. Yes * Community resources currently utilized None * Additional services required to return to the preadmission environment? Yes * Can the patient safely return to the preadmission environment? Yes * Has this patient been hospitalized within the prior 30 days at any hospital? No Coverage Notice Reviewer: [id number] - Kimberly Rosalba Notice Issued Date-Time: 01/06/2019 11:16 Notice Type: Patient Choice Letter Notice Delivered To: Patient Relationship to Patient: Self Cane Flume Chute Operator Name: Delivery Method: HAND - Hand Delivered Yolanda Days: Prior Verbal Notification: Recipient Understood Notice: Yes Recipient Signature: Yes Med Rec Note Co-signed by Attending: Coverage Notice Comment: [facility] for [facility] in [place]. Family signed per request Last DP export: 01/06/19 10:31 a Patient Name: ELY MAY Page [phone] at 1138 All edits/amendments must be made on the electronic document DICTATION DATE: 01/06/19 1138 BULK FLUIDS HANDLER: IVONNE 01/06/19 1138 RPT#: [id number] DC DATE: STATUS: ADM IN [facility] [address] [place] [address] END OF REPORT
[2019-01-06 18:35] VITALS: BP 148/81
--- NOTE | 2019-01-06 19:17 | NUR ---
I have reviewed this patient and I concur with the Shift Assessment completed by the Licensed Practical Nurse today this shift.
[2019-01-06 20:00] VITALS: BP 123/63
--- NOTE | 2019-01-06 20:00 | NUR ---
ALERT SITTING UP IN BED, ABD SOFT COLOSTOMY BAG INTACT WITH SMALL AMOUNT LIQUID STOOL NOTED, REPORTS SOME PAIN FROM INFUSAPORT PLACEMMENT, SEE SHIFT ASSESSMENT, CALL LIGHT IN REACH
[2019-01-07] VITALS: BP 130/60
[2019-01-07 04:00] VITALS: BP 136/72
[2019-01-07 05:09] LABS: BASOPHILS 0.2 % (0-2); EOSINOPHILS 0.1 % (0-7); HEMATOCRIT 30.2 % (36.0-48.0); HEMOGLOBIN 9.5 g/dL (12-16); IMMATURE GRANULOCYTES 0.7 % (0-5); LYMPHOCYTES 14.4 % (15-50); MCH 26.6 pg (26.0-34.0); MCHC 31.5 g/dL (31.0-37.0); MCV 84.6 fL (80.0-100.0); MEAN PLATELET VOLUME 9.9 fL (7.4-10.4); MONOCYTES 11.8 % (2-11); NEUTROPHILS 72.8 % (40-80); PLATELET COUNT 298 10x3/uL (130-400); RBC 3.57 10x6/uL (4.00-5.40); RDW 14.8 % (11.5-14.5); WBC 8.8 10x3/uL (4.8-10.8)
[2019-01-07 06:02] LABS: ALBUMIN 2.2 g/dL (3.4-5.0); ALKALINE PHOSPHATASE 64 U/L (46-116); ALT (SGPT) 14 U/L (10-68); BILIRUBIN - TOTAL 0.25 mg/dL (0.2-1.3); CALC OSMOLALITY 278 mosm/kg (275-300); CALCIUM 8.2 mg/dL (8.5-10.1); CARBON DIOXIDE 27.5 mmol/L (21.0-32.0); CHLORIDE - SERUM 106 mmol/L (98-107); CREATININE - SERUM 0.5 mg/dL (0.6-1.3); GLUCOSE 134 mg/dL (74-106); POTASSIUM - SERUM 3.8 mmol/L (3.5-5.1); PROTEIN - SERUM 5.6 g/dL (6.4-8.2); SODIUM 140 mmol/L (136-145); eGFR NON AFRICAN AMERICAN > 90 mL/min (90-120)
[2019-01-07 06:04] LABS: UREA NITROGEN 8 mg/dL (7-18)
[2019-01-07 09:38] VITALS: BP 147/66
--- NOTE | 2019-01-07 12:29 | NUR ---
Nutrition Follow Up: Pt said that her appetite is improving and her nausea has resolved. She said that she is not a "big eater" and normally only eats 2 meals/day. Pt stated that she is eating about the amount that she does at home. Diet: Regular PO Intake: 25% meal avg No new wt Meds and labs reviewed Rec continue current diet as tolerated. RD following.
[2019-01-07 14:11] VITALS: BP 149/87
--- NOTE | 2019-01-07 15:00 | NUR ---
PT RESTING IN BED. NO SIGNS OF DISTRESS. IV TO RIGHT IJ PATENT HAS INFUSAPORT TO LEFT CHEST PATENT. NO REDNESS OR TENDERNESS. HAS COLOSTOMY. DENIES ANY FUTHER NEED AT THIS TIME. CALL LIGHT IN REACH. BED LOW POSITION. FAMILY AT BEDSIDE.
[2019-01-07 17:56] VITALS: BP 132/76
--- NOTE | 2019-01-07 18:04 | NUR ---
I have reviewed this patient and I concur with the Shift Assessment completed by the Licensed Practical Nurse today this shift.
[2019-01-07 21:08] VITALS: BP 149/74
[2019-01-08 01:39] VITALS: BP 134/62
[2019-01-08 04:58] VITALS: BP 139/69
[2019-01-08 05:09] LABS: BASOPHILS 0.6 % (0-2); EOSINOPHILS 5.1 % (0-7); HEMATOCRIT 30.4 % (36.0-48.0); HEMOGLOBIN 9.5 g/dL (12-16); IMMATURE GRANULOCYTES 0.9 % (0-5); LYMPHOCYTES 18.7 % (15-50); MCH 26.4 pg (26.0-34.0); MCHC 31.3 g/dL (31.0-37.0); MCV 84.4 fL (80.0-100.0); MEAN PLATELET VOLUME 9.4 fL (7.4-10.4); MONOCYTES 11.3 % (2-11); NEUTROPHILS 63.4 % (40-80); PLATELET COUNT 262 10x3/uL (130-400); RDW 15.3 % (11.5-14.5); WBC 8.8 10x3/uL (4.8-10.8)
[2019-01-08 05:17] LABS: ALBUMIN 2.4 g/dL (3.4-5.0); ALKALINE PHOSPHATASE 65 U/L (46-116); ALT (SGPT) 15 U/L (10-68); BILIRUBIN - TOTAL 0.18 mg/dL (0.2-1.3); CALCIUM 8.3 mg/dL (8.5-10.1); CARBON DIOXIDE 31.7 mmol/L (21.0-32.0); CHLORIDE - SERUM 106 mmol/L (98-107); CREATININE - SERUM 0.6 mg/dL (0.6-1.3); GLUCOSE 118 mg/dL (74-106); PROTEIN - SERUM 5.7 g/dL (6.4-8.2); SODIUM 143 mmol/L (136-145); eGFR NON AFRICAN AMERICAN > 90 mL/min (90-120)
[2019-01-08 05:21] LABS: CALC OSMOLALITY 282 mosm/kg (275-300); POTASSIUM - SERUM 3.1 mmol/L (3.5-5.1); UREA NITROGEN 5 mg/dL (7-18)
--- NOTE | 2019-01-08 08:00 | NUR ---
ALERT AND ORIENTED X3 WITH COLOSTOMY INTACT TO RUQ ANTERIOR. IVF INFUSING VIA LEFT MEDICPORT W/O ANY S/S OF INFECTION/INFULTRATION. DENIES ANY PAINOR DISCOMFORT AT THIS TIME. ABDOMEN SOFT WITH BS NOTED. ENCOURAGD TO USE CALL LIGHT FOR ASSSIT.
[2019-01-08 08:45] VITALS: BP 153/85
[2019-01-08 09:51] LABS: MAGNESIUM - SERUM 1.5 mg/dL (1.8-2.4); PHOSPHOROUS 3.4 mg/dL (2.5-4.9)
[2019-01-08 14:37] VITALS: BP 134/63
[2019-01-08 18:03] VITALS: BP 138/66
--- NOTE | 2019-01-08 20:00 | NUR ---
ALERT RESTING IN BED FAMILY AT BEDSIDE, DENIES ANY NEEDS AT THIS TIME. SEE SHIFT ASSESSMENT CALL LIGHT IN REACH
[2019-01-08 21:22] VITALS: BP 131/61
[2019-01-09 05:14] VITALS: BP 130/60
[2019-01-09 06:26] LABS: BASOPHILS 0.6 % (0-2); EOSINOPHILS 7.1 % (0-7); HEMATOCRIT 32.1 % (36.0-48.0); MCHC 31.2 g/dL (31.0-37.0); MEAN PLATELET VOLUME 10.2 fL (7.4-10.4); MONOCYTES 13.4 % (2-11); NEUTROPHILS 52.9 % (40-80); PLATELET COUNT 284 10x3/uL (130-400); RBC 3.71 10x6/uL (4.00-5.40); WBC 7.2 10x3/uL (4.8-10.8)
[2019-01-09 06:32] LABS: MCV 86.5 fL (80.0-100.0)
[2019-01-09 07:17] LABS: ALBUMIN 2.6 g/dL (3.4-5.0); ALKALINE PHOSPHATASE 69 U/L (46-116); ALT (SGPT) 15 U/L (10-68); BILIRUBIN - TOTAL 0.18 mg/dL (0.2-1.3); CALC OSMOLALITY 280 mosm/kg (275-300); CALCIUM 8.8 mg/dL (8.5-10.1); CARBON DIOXIDE 29.2 mmol/L (21.0-32.0); CHLORIDE - SERUM 105 mmol/L (98-107); CREATININE - SERUM 0.5 mg/dL (0.6-1.3); GLUCOSE 110 mg/dL (74-106); POTASSIUM - SERUM 3.4 mmol/L (3.5-5.1); PROTEIN - SERUM 6.1 g/dL (6.4-8.2); SODIUM 142 mmol/L (136-145); UREA NITROGEN 3 mg/dL (7-18); eGFR NON AFRICAN AMERICAN > 90 mL/min (90-120)
[2019-01-09 08:47] VITALS: BP 132/69
[2019-01-09] MEDS ORDERED: ELIQUIS5 MG PO (09:54)
--- NOTE | 2019-01-09 10:23 | MORECARE ---
CASE MANAGEMENT DISCHARGE SUMMARY PATIENT: ELY MAY UNIT: [id number] ADM DATE: 12/31/18 AGE: 78 : 42 SEX: F ROOM/BED: D.2229 AUTHOR: JOSE,DOC PHYSICIAN: REFERRING PHYSICIAN: SHONNA PURCELL MD DATE OF SERVICE: 01/09/19 Discharge Plan Patient Name: ELY MAY Facility: [facility]:[place] : 1940 Planned Disposition: Home with Home Health Anticipated Discharge Date: Discharge Date: Expected LOS: Initial Reviewer: [email or web address] Initial Review Date: 01/04/2019 Generated: 01/09/19 11:23 am Comments DCP- Discharge Planning Updated by [email or web address]: Tiana Reis on 01/09/19 9:[address] Patient Name: ELY MAY Admission Status: ER Accout number: [id number] Admission Date: 12-31-2018 : 1940 Admission Diagnosis:UNSPECIFIED ABDOMINAL PAIN Attending: SHONNA PURCELL Current LOS: 9 Anticipated DC Date: Planned Disposition: Home with Home Health Primary Insurance: MEDICARE A & B Discharge Planning Comments: CM SPOKE WITH [facility] AT [phone] AND THEY WILL SEE HER TOMORROW. CM TO FOLLOW AND ASSIST NEEDED WITH DC PLANNING/NEEDS. Clin Application Specialist: Tiana Reis DCP- Discharge Planning Updated by [email or web address]: Kimberly Navarrete on 01/06/19 10:[address] Patient's family states they would like [facility] for home health. I called and spoke to [place] and clinical faxed. CM will continue to follow and assist with discharge planning/needs. DCP- Discharge Planning Updated by [email or web address]: Kimberly Navarrete on 01/05/19 8:[address] Patient Name: ELY MAY Admission Status: ER Accout number: [id number] Admission Date: 12-31-2018 : 1940 Admission Diagnosis:UNSPECIFIED ABDOMINAL PAIN Attending: SHONNA PURCELL Current LOS: 5 Anticipated DC Date: Planned Disposition: Home with Home Health Primary Insurance: MEDICARE A & B Discharge Planning Comments: CM met with patient and her daughter in law in the room to discuss discharge planning/needs. Patient is up in the chair and drowsy and verbal permission given to speak with EUGENE Emerson) concerning discharge needs. She states patient lives at home with her . States she is independent with all ADL's and AIDL's. States she does have a BSC and walker at home but does not use them. States her grand daughter is a nurse and will assist with her ostomy care. I discussed availability of inpatient rehab, SNF, home health and additional DME needs. States she would like home health at discharge. I gave her the [facility] form on home health, EUGENE is unsure which one she will pick, she states she will ask the grand daughter. I gave her my card and number to call me when she knows the service she would like to use. CM will continue to follow and assist with discharge planning/needs. Clin Application Specialist: Kimberly Navarrete DCP- Discharge Planning Updated by [email or web address]: Kimberly Navarrete on 01/04/19 4:[address] CM went to room to discuss discharge planning, patient is asleep and family member has asked me to return tomorrow. CM will meet with family in the morning to discuss discharge planning/needs. DCPIA - Discharge Planning Initial Assessment Updated by [id number]: Kimberly Navarrete on 01/05/19 9:52 am * Is the patient Alert and Oriented? Yes * How many steps to enter\exit or inside your home? 2/2 * PCP Dr. Mims * [facility] * Preadmission Environment Home with Family * ADLs Independent * Equipment Bedside Commode Walker * List name and contact numbers for known caregivers / representatives who currently or will assist patient after discharge: Piyush Lalo son - [phone] Sonam May [facility] - [phone] * Verbal permission to speak to the caregivers and representatives has been obtained from the patient. Yes * Community resources currently utilized None * Additional services required to return to the preadmission environment? Yes * Can the patient safely return to the preadmission environment? Yes * Has this patient been hospitalized within the prior 30 days at any hospital? No Coverage Notice Reviewer: [id number] - Kimberly Navarrete Notice Issued Date-Time: 01/06/2019 11:16 Notice Type: Patient Choice Letter Notice Delivered To: Patient Relationship to Patient: Self Vest Tailor Name: Delivery Method: HAND - Hand Delivered Yolanda Days: Prior Verbal Notification: Recipient Understood Notice: Yes Recipient Signature: Yes Med Rec Note Co-signed by Attending: Coverage Notice Comment: [facility] for [facility] in [place]. Family signed per request Last DP export: 01/06/19 10:38 a Patient Name: ELY MAY Page [id number] at 1023 All edits/amendments must be made on the electronic document DICTATION DATE: 01/09/19 1023 HEEL SEAT LASTER: IVONNE 01/09/19 1023 RPT#: [id number] DC DATE: STATUS: ADM IN [facility] [address] [place] [address] END OF REPORT
[2019-01-09] MEDS ORDERED: HYDROCODON-ACE1 EAC7 PO (10:43)
--- NOTE | 2019-01-09 10:56 | MORECARE ---
CASE MANAGEMENT DISCHARGE SUMMARY PATIENT: ELY MAY UNIT: [id number] ADM DATE: 12/31/18 AGE: 78 : 42 SEX: F ROOM/BED: D.2229 AUTHOR: JOSEDOC PHYSICIAN: REFERRING PHYSICIAN: SHONNA PURCELL MD DATE OF SERVICE: 01/09/19 Discharge Plan Patient Name: ELY MAY Facility: [facility]:[place] : 1940 Planned Disposition: Home with Home Health Anticipated Discharge Date: Discharge Date: Expected LOS: Initial Reviewer: [email or web address] Initial Review Date: 01/04/2019 Generated: 01/09/19 11:55 am Comments DCP- Discharge Planning Updated by [id number]: Tiana Reis on 01/09/19 9:[address] Patient Name: ELY MAY Admission Status: ER Accout number: [id number] Admission Date: 12-31-2018 : 1940 Admission Diagnosis:UNSPECIFIED ABDOMINAL PAIN Attending: SHONNA PURCELL Current LOS: 9 Anticipated DC Date: Planned Disposition: Home with Home Health Primary Insurance: MEDICARE A & B Discharge Planning Comments: CM SPOKE WITH [facility] AT [phone] AND THEY WILL SEE HER TOMORROW. CM TO FOLLOW AND ASSIST NEEDED WITH DC PLANNING/NEEDS. Scrubbing Machine Operator: Tiana Reis Appended by Tiana Reis on 01/09/2019 10:53 CDT: Eliquis packet given to patient with card for 30 day free trial and 10 dollar copay card. DCP- Discharge Planning Updated by [id number]: Kimberly Navarrete on 01/06/19 10:[address] Patient's family states they would like [facility] in [place] for home health. I called and spoke to [place] and clinical faxed. CM will continue to follow and assist with discharge planning/needs. DCP- Discharge Planning Updated by [id number]: Kimberly Navarrete on 01/05/19 8:[address] Patient Name: ELY MAY Admission Status: ER Accout number: [id number] Admission Date: 12-31-2018 : 1940 Admission Diagnosis:UNSPECIFIED ABDOMINAL PAIN Attending: SHONNA PURCELL Current LOS: 5 Anticipated DC Date: Planned Disposition: Home with Home Health Primary Insurance: MEDICARE A & B Discharge Planning Comments: CM met with patient and her daughter in law in the room to discuss discharge planning/needs. Patient is up in the chair and drowsy and verbal permission given to speak with EUGENE Emerson) concerning discharge needs. She states patient lives at home with her . States she is independent with all ADL's and AIDL's. States she does have a BSC and walker at home but does not use them. States her grand daughter is a nurse and will assist with her ostomy care. I discussed availability of inpatient rehab, SNF, home health and additional DME needs. States she would like home health at discharge. I gave her the [facility] form on home health, EUGENE is unsure which one she will pick, she states she will ask the grand daughter. I gave her my card and number to call me when she knows the HH service she would like to use. CM will continue to follow and assist with discharge planning/needs. Scrubbing Machine Operator: Kimberly Navarrete DCP- Discharge Planning Updated by [email or web address]: Kimberly Navarrete on 01/04/19 4:[address] CM went to room to discuss discharge planning, patient is asleep and family member has asked me to return tomorrow. CM will meet with family in the morning to discuss discharge planning/needs. DCPIA - Discharge Planning Initial Assessment Updated by [id number]: Kimberly Navarrete on 01/05/19 9:52 am * Is the patient Alert and Oriented? Yes * How many steps to enter\exit or inside your home? 2/2 * PCP Dr. Mims * [facility] * Preadmission Environment Home with Family * ADLs Independent * Equipment Bedside Commode Walker * List name and contact numbers for known caregivers / representatives who currently or will assist patient after discharge: Piyush May - son - [phone] Sonam May Gianfranco KNIGHT - [phone] * Verbal permission to speak to the caregivers and representatives has been obtained from the patient. Yes * Community resources currently utilized None * Additional services required to return to the preadmission environment? Yes * Can the patient safely return to the preadmission environment? Yes * Has this patient been hospitalized within the prior 30 days at any hospital? No Coverage Notice Reviewer: [email or web address] Gianfranco Navarrete Notice Issued Date-Time: 01/06/2019 11:16 Notice Type: Patient Choice Letter Notice Delivered To: Patient Relationship to Patient: Self Front Desk Admin Name: Delivery Method: HAND - Hand Delivered Yolanda Days: Prior Verbal Notification: Recipient Understood Notice: Yes Recipient Signature: Yes Med Rec Note Co-signed by Attending: Coverage Notice Comment: [facility] for [facility] in [place]. Family signed per request Reviewer: [id number] Gianfranco Reis Notice Issued Date-Time: 01/09/2019 10:48 Notice Type: IM Discharge Notice Notice Delivered To: Patient Relationship to Patient: Self Front Desk Admin Name: Delivery Method: HAND - Hand Delivered Yolanda Days: Prior Verbal Notification: Recipient Understood Notice: Yes Recipient Signature: Yes Med Rec Note Co-signed by Attending: Coverage Notice Comment: Last DP export: 01/09/19 9:23 a Patient Name: ELY MAY Page [id number] at 1056 All edits/amendments must be made on the electronic document DICTATION DATE: 01/09/19 1055 FLAT LOCKER: IVONNE 01/09/19 1055 RPT#: [id number] DC DATE: STATUS: ADM IN [facility] [address] [place] [address] END OF REPORT
--- NOTE | 2019-01-09 12:52 | NUR ---
PT LYING IN BED WITH SON AT BEDSIDE. TAUGHT PT COLOSTOMY CARE AND HOW TO CHANGE COLOSTOMY. WENT OVER DC INSTRUCTIONS AND FOLLOW UP APPOINTMENTS. ALL QUESTIONS ANSWERED. CONTINUE WITH PLAN OF CARE
--- NOTE | 2019-01-09 15:55 | MORECARE ---
CASE MANAGEMENT DISCHARGE SUMMARY PATIENT: ELY MAY UNIT: [id number] ADM DATE: 12/31/18 AGE: 78 : 42 SEX: F ROOM/BED: D.2229 AUTHOR: JOSE,DOC PHYSICIAN: REFERRING PHYSICIAN: HSONNA PURCELL MD DATE OF SERVICE: 01/09/19 Discharge Plan Patient Name: ELY AMY Facility: [facility]:[place] : 1940 Planned Disposition: Home with Home Health Anticipated Discharge Date: Discharge Date: 01/09/2019 Expected LOS: Initial Reviewer: [email or web address] Initial Review Date: 01/04/2019 Generated: 01/09/19 4:55 pm Comments DCP- Discharge Planning Updated by [id number]: Tiana Reis on 01/09/19 9:[address] Patient Name: ELY MAY Admission Status: ER Accout number: [id number] Admission Date: 12-31-2018 : 1940 Admission Diagnosis:UNSPECIFIED ABDOMINAL PAIN Attending: SHONNA PURCELL Current LOS: 9 Anticipated DC Date: Planned Disposition: Home with Home Health Primary Insurance: MEDICARE A & B Discharge Planning Comments: CM SPOKE WITH [facility] AT [phone] AND THEY WILL SEE HER TOMORROW. CM TO FOLLOW AND ASSIST NEEDED WITH DC PLANNING/NEEDS. Industrial Electrician: Tiana Reis Appended by Tiana Reis on 01/09/2019 10:53 CDT: Eliquis packet given to patient with card for 30 day free trial and 10 dollar copay card. DCP- Discharge Planning Updated by [email or web address]: Kimberly Navarrete on 01/06/19 10:[address] Patient's family states they would like [facility] in [place] for home health. I called and spoke to [place] and clinical faxed. CM will continue to follow and assist with discharge planning/needs. DCP- Discharge Planning Updated by [id number]: Kimberly Navarrete on 01/05/19 8:[address] Patient Name: ELY MAY Admission Status: ER Accout number: [id number] Admission Date: 12-31-2018 : 1940 Admission Diagnosis:UNSPECIFIED ABDOMINAL PAIN Attending: SHONNA PURCELL Current LOS: 5 Anticipated DC Date: Planned Disposition: Home with Home Health Primary Insurance: MEDICARE A & B Discharge Planning Comments: CM met with patient and her daughter in law in the room to discuss discharge planning/needs. Patient is up in the chair and drowsy and verbal permission given to speak with EUGENE Emerson) concerning discharge needs. She states patient lives at home with her . States she is independent with all ADL's and AIDL's. States she does have a BSC and walker at home but does not use them. States her grand daughter is a nurse and will assist with her ostomy care. I discussed availability of inpatient rehab, SNF, home health and additional DME needs. States she would like home health at discharge. I gave her the [facility] form on home health, EUGENE is unsure which one she will pick, she states she will ask the grand daughter. I gave her my card and number to call me when she knows the HH service she would like to use. CM will continue to follow and assist with discharge planning/needs. Industrial Electrician: Kimberly Navarrete DCP- Discharge Planning Updated by [email or web address]: Kimberly Navarrete on 01/04/19 4:[address] CM went to room to discuss discharge planning, patient is asleep and family member has asked me to return tomorrow. CM will meet with family in the morning to discuss discharge planning/needs. DCPIA - Discharge Planning Initial Assessment Updated by [email or web address]: Kimberly Navarrete on 01/05/19 9:52 am * Is the patient Alert and Oriented? Yes * How many steps to enter\exit or inside your home? 2/2 * PCP Dr. Mims * [facility] * Preadmission Environment Home with Family * ADLs Independent * Equipment Bedside Commode Walker * List name and contact numbers for known caregivers / representatives who currently or will assist patient after discharge: Piyush May - son - [phone] Sonam May - EUGENE - [phone] * Verbal permission to speak to the caregivers and representatives has been obtained from the patient. Yes * Community resources currently utilized None * Additional services required to return to the preadmission environment? Yes * Can the patient safely return to the preadmission environment? Yes * Has this patient been hospitalized within the prior 30 days at any hospital? No Coverage Notice Reviewer: [email or web address] Gianfranco Navarrete Notice Issued Date-Time: 01/06/2019 11:16 Notice Type: Patient Choice Letter Notice Delivered To: Patient Relationship to Patient: Self Protein Scientist Name: Delivery Method: HAND - Hand Delivered Yolanda Days: Prior Verbal Notification: Recipient Understood Notice: Yes Recipient Signature: Yes Med Rec Note Co-signed by Attending: Coverage Notice Comment: [facility] for [facility] in [place]. Family signed per request Reviewer: [id number] - Tiana Reis Notice Issued Date-Time: 01/09/2019 10:48 Notice Type: IM Discharge Notice Notice Delivered To: Patient Relationship to Patient: Self Protein Scientist Name: Delivery Method: HAND - Hand Delivered Yolanda Days: Prior Verbal Notification: Recipient Understood Notice: Yes Recipient Signature: Yes Med Rec Note Co-signed by Attending: Coverage Notice Comment: Last DP export: 01/09/19 9:55 a Patient Name: ELY MAY Page [id number] at 1555 All edits/amendments must be made on the electronic document DICTATION DATE: 01/09/19 1550 SHIPYARD SUPERVISOR: IVONNE 01/09/19 1557 RPT#: [id number] DC DATE:01/09/19 STATUS: DIS IN [facility] [address] [place] [address] END OF REPORT
--- NOTE | 2019-01-11 12:59 | OP ---
PATIENT NAME: ELY PEREZ MEDICAL RECORD: [id number] :[birth year] LOCATION:D.MS Crum2229 ADMISSION DATE:12/31/18 SURGEON: MAX LU MD DATE OF OPERATION: 01/01/2019 PREOPERATIVE DIAGNOSIS: Obstructing splenic flexure colon mass. POSTOPERATIVE DIAGNOSIS: Obstructing splenic flexure colon mass. PROCEDURE: Epigastric double barrel colostomy. SURGEON: Max Lu MD DECONTAMINATION WORKER: None. BLOOD LOSS: Minimal. ANESTHESIA: General. COMPLICATIONS: None. I have explained the planned operation to the patient and to her family. We are unable to bowel prep her due to an obstructing colonic mass. This is undoubtedly going to represent a malignancy. 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 A double-barrel colostomy is going to allow us to decompress her 3 afferent and efferent limbs of the colon, proximal to the splenic flexure. She should be able to evacuate through the anus distal to the splenic flexure mass. The risks, possible complications and alternatives to the procedure were explained to the patient. She elects to proceed. DESCRIPTION OF PROCEDURE: The patient was conveyed the operating room electively. The abdomen was sterilely prepped and draped. A circular incision was accomplished in the epigastrium. Sharp dissection was carried down through the skin and subcutaneous tissues. I excised a circular plug of subcutaneous adipose tissue. A cruciate incision was accomplished in the anterior fascia. I dissected down through the linea alba. I incised the peritoneum. I brought out some omentum as well as the transverse colon. Some of the omentum was excised utilizing the Super Jaw EnSeal device. A window was created in the mesocolon of the transverse colon. I was unable to visualize the liver. I was unable to palpate or visualize the splenic flexure mass. Through the mesentery of the transverse colon, a red rubber Banerjee catheter was advanced and I sutured this to itself anteriorly with some silk sutures. I then incised the transverse colon. I then sutured the full thickness of the transverse colon to the surrounding subdermis with interrupted 3-0 Vicryls to mature the stoma. A stomal appliance was then applied. The patient was then extubated and conveyed to the post-anesthesia care unit where she was in stable condition. OPERATIVE REPORT [id number] HILL,ELY TRANSINT:[id number] Voice Confirmation ID: [id number] DOCUMENT ID: [id number] MAX LU MD at 1259 CC: SHONNA PURCELL MD and KIRIT RODRIGEZ DO [id number] DICTATION DATE: 01/09/191717 PRINT FINISHING WORKER: 01/10/19 0038 DIS IN 01/09/19 [place] [id number] [place] [id number]
== END 2019-01-09 12:55 | disposition home health service (06) | DRG 329 ==
LOC: D.ER 19:16 → D.MS 22:48 → D.ICU 01-01 19:34 → D.MS 01-02 17:14
PROVIDERS: Family Medicine; Internal Medicine Hematology & Oncology; Radiology Diagnostic Radiology; Surgery; ADMIT Internal Medicine Nephrology; ATTEND Internal Medicine Nephrology
PROC: 0D1M0Z4 Bypass Descending Colon to Cutaneous, Open Approach (ICD-10-PCS; 2019-01-01 13:30)
PROC: 0FB03ZX Excision of Liver, Percutaneous Approach, Diagnostic (ICD-10-PCS; principal; 2019-01-05 13:33)
PROC: 0JH63XZ Insertion of Tunneled Vascular Access Device into Chest Subcutaneous Tissue and Fascia, Percutaneous Approach (ICD-10-PCS; 2019-01-06)
DX: C18.9 Malignant neoplasm of colon, unspecified (principal); I26.99 Other pulmonary embolism without acute cor pulmonale; C78.7 Secondary malignant neoplasm of liver and intrahepatic bile duct; K56.609 Unspecified intestinal obstruction, unspecified as to partial versus complete obstruction; K63.9 Disease of intestine, unspecified; I10 Essential (primary) hypertension; E87.6 Hypokalemia

== ENCOUNTER 2019-03-02 20:19 | Emergency (ER) | payer MEDICARE, BC ==
[~2019-03-02] VITALS: Ht 162.6 cm; Wt 75.0 kg
[~2019-03-02 20:19] MED LIST changes: +ELIQUIS5 MG PO; +HYDROCODON-ACE1 EAC7 PO
[2019-03-02 20:28] VITALS: Ht 162.6 cm; Wt 75.0 kg
[2019-03-02] MEDS ORDERED: PHENERGAN25 M1 RC (20:30)
[2019-03-02] MEDS ORDERED: ZOFRAN4 MG PO (20:31)
[2019-03-02 21:25] LABS: BASOPHILS 0.2 % (0-2); EOSINOPHILS 0.2 % (0-7); HEMATOCRIT 38.1 % (36.0-48.0); HEMOGLOBIN 13.5 g/dL (12-16); IMMATURE GRANULOCYTES 0.8 % (0-5); LYMPHOCYTES 18.6 % (15-50); MCH 28.4 pg (26.0-34.0); MCHC 35.4 g/dL (31.0-37.0); MCV 80.2 fL (80.0-100.0); MEAN PLATELET VOLUME 9.3 fL (7.4-10.4); MONOCYTES 2.1 % (2-11); NEUTROPHILS 78.1 % (40-80); RBC 4.75 10x6/uL (4.00-5.40); RDW 18.2 % (11.5-14.5); WBC 5.1 10x3/uL (4.8-10.8)
[2019-03-02 21:28] LABS: PLATELET COUNT 199 10x3/uL (130-400)
[2019-03-02 21:46] LABS: APTT 50.7 SECONDS (22.8-39.4); INR 3.84 (0.85-1.17)
[2019-03-02 21:56] LABS: ANION GAP 15.1 mmol/L (8-16); BILIRUBIN - TOTAL 0.37 mg/dL (0.2-1.3); CALCIUM 7.7 mg/dL (8.5-10.1); CARBON DIOXIDE 20.9 mmol/L (21.0-32.0); PROTEIN - SERUM 6.7 g/dL (6.4-8.2)
[2019-03-02 23:25] VITALS: BP 126/70
== END 2019-03-02 23:25 | disposition home or self-care (01) ==
LOC: D.ER 20:19
PROVIDERS: Family Medicine
DX: R31.9 Hematuria, unspecified (principal); Z79.01 Long term (current) use of anticoagulants; R74.8 Abnormal levels of other serum enzymes; E87.6 Hypokalemia; E87.1 Hypo-osmolality and hyponatremia

== ENCOUNTER 2019-03-22 17:19 | Inpatient (IN) | payer MEDICARE, BC ==
[~2019-03-22] VITALS: Ht 162.6 cm; Wt 63.5 kg
[~2019-03-22 17:19] MED LIST changes: +PHENERGAN25 M1 RC; +ZOFRAN4 MG PO
[2019-03-22 17:46] LABS: BASOPHILS 0.3 % (0-2); EOSINOPHILS 1.1 % (0-7); HEMATOCRIT 39.9 % (36.0-48.0); HEMOGLOBIN 14.1 g/dL (12-16); IMMATURE GRANULOCYTES 0.6 % (0-5); LYMPHOCYTES 40.5 % (15-50); MCH 29.4 pg (26.0-34.0); MCHC 35.3 g/dL (31.0-37.0); MCV 83.1 fL (80.0-100.0); MEAN PLATELET VOLUME 9.6 fL (7.4-10.4); MONOCYTES 25.4 % (2-11); NEUTROPHILS 32.1 % (40-80); PLATELET COUNT 217 10x3/uL (130-400); RDW 19.9 % (11.5-14.5); WBC 6.2 10x3/uL (4.8-10.8)
[2019-03-22 18:26] LABS: ALBUMIN 2.8 g/dL (3.4-5.0); ANION GAP 12.5 mmol/L (8-16); BILIRUBIN - TOTAL 0.56 mg/dL (0.2-1.3); CALCIUM 8.7 mg/dL (8.5-10.1); CARBON DIOXIDE 26.8 mmol/L (21.0-32.0); CREATININE - SERUM 0.9 mg/dL (0.6-1.3); POTASSIUM - SERUM 3.3 mmol/L (3.5-5.1)
--- NOTE | 2019-03-22 19:13 | NUR ---
PT RESTING ON BED. IRIS RICHARDSON AT PT BEDSIDE.
--- NOTE | 2019-03-22 20:02 | NUR ---
PT LEFT ED VIA STRETCHER.
--- NOTE | 2019-03-22 20:14 | NUR ---
PT RETURNED FROM CT VIA STRETCHER.
[2019-03-22 21:23] LABS: APPEARANCE CLEAR (CLEAR); BILIRUBIN NEGATIVE (NEGATIVE); COLOR YELLOW (YELLOW); GLUCOSE 100 mg/dL (NEGATIVE); KETONE NEGATIVE (NEGATIVE); NITRITE NEGATIVE (NEGATIVE); PROTEIN TRACE mg/dL (NEGATIVE); UROBILINOGEN NORMAL (NORMAL)
--- NOTE | 2019-03-22 21:45 | NUR ---
PT RESTING ON BED. NO S/S OF ACUTE DISTRESS NOTED.
--- NOTE | 2019-03-22 22:30 | NUR ---
PT UPDATED ON PLAN OF CARE. NO S/S OF ACUTE DISTRESS NOTED.
--- NOTE | 2019-03-22 23:45 | NUR ---
PT ARRIVED TO FLOOR VIA STRETCHER, TRANSFERED SELF TO BED. ALERT AND ORIENTED, WITHOUT DISTRESS. PT STATES SHE HAS HAD N/V/D SINCE FRIDAY AFTER CHEMO FRIDAY. STATES USUALLY BY NOW IT WOULD HAVE WENT AWAY BUT HAS NOT AND ZOFRAN AND PHENERGAN AT HOME ARE NOT WORKING. REQUESTED AND GIVEN ICE WATER, ENCOURAGED TO TAKE IT SLOW D/T NAUSEA. IV LEFT HAND INFUSING NS W/ 20K @ 200 AND ZOFRAN DRIP. DENIES PAIN. COLOSTOMY EMPTIED, 200ML DARK BROWN LIQUID. DENIES OTHER NEEDS AT THIS TIME. ASSISTED PT IN CHANGING INTO GOWN AND ONTO BEDPAN. VOIDED 300ML DARK YELLOW URINE. DAUGHTER AT BEDSIDE. CL IN REACH, WILL CTM
[2019-03-23] MEDS ORDERED: ZYRTEC10 MG PO (00:15)
[2019-03-23] MEDS ORDERED: COUMADIN2.5 MG PO (00:15)
[2019-03-23] MEDS ORDERED: LOMOTIL 2.5-0.1 EAC1 PO (00:33)
[2019-03-23 00:36] VITALS: BP 140/76; BMI 24.0
[2019-03-23 04:42] VITALS: BP 154/77
[2019-03-23 05:41] LABS: HEMATOCRIT 33.8 % (36.0-48.0); HEMOGLOBIN 11.6 g/dL (12-16); MCH 28.6 pg (26.0-34.0); MCHC 34.3 g/dL (31.0-37.0); MCV 83.3 fL (80.0-100.0); MEAN PLATELET VOLUME 9.6 fL (7.4-10.4); PLATELET COUNT 191 10x3/uL (130-400); RBC 4.06 10x6/uL (4.00-5.40); RDW 19.7 % (11.5-14.5); WBC 4.8 10x3/uL (4.8-10.8)
[2019-03-23 05:51] LABS: INR 2.15 (0.85-1.17); PROTIME 23.3 SECONDS (11.6-15.0)
[2019-03-23 05:56] LABS: ALBUMIN 2.1 g/dL (3.4-5.0); ALKALINE PHOSPHATASE 65 U/L (46-116); BILIRUBIN - TOTAL 0.44 mg/dL (0.2-1.3); CALC OSMOLALITY 295 mosm/kg (275-300); CALCIUM 8.2 mg/dL (8.5-10.1); CARBON DIOXIDE 25.4 mmol/L (21.0-32.0); CHLORIDE - SERUM 111 mmol/L (98-107); CREATININE - SERUM 0.7 mg/dL (0.6-1.3); GLUCOSE 145 mg/dL (74-106); MAGNESIUM - SERUM 1.1 mg/dL (1.8-2.4); PHOSPHOROUS 2.7 mg/dL (2.5-4.9); POTASSIUM - SERUM 3.5 mmol/L (3.5-5.1); PROTEIN - SERUM 5.1 g/dL (6.4-8.2); SODIUM 145 mmol/L (136-145); UREA NITROGEN 23 mg/dL (7-18); eGFR NON AFRICAN AMERICAN 86 mL/min (90-120)
[2019-03-23 06:12] LABS: ALT (SGPT) 10 U/L (10-68)
[2019-03-23 08:06] VITALS: BP 133/78
--- NOTE | 2019-03-23 09:13 | NUR ---
PT ALERT X 4. BREATH SOUNDS CLEAR BILAT. COLOSTOMY TO RIGHT SIDE, EMPTIED 450ML. PT REPORTS SLIGHT NAUSEA, BUT HELD DOWN SOME JELL-O. IV TO LEFT HAND, PATENT, DRESSING CDI. MAGNESIUM HUNG PER PROTOCOL. FAMILY AT BEDSIDE. BED LOW, CALL LIGHT IN REACH. NO OTHER NEEDS AT THIS TIME.
[2019-03-23 09:45] LABS: ANISOCYTOSIS OCC; EOSINOPHILS 2 % (0-7); LYMPHOCYTES 47 % (15-50); MONOCYTES 21 % (2-11); NEUTROPHILS 25 % (40-80); PLATELET ESTIMATE NORMAL; POIKILOCYTOSIS OCC
[2019-03-23 09:46] LABS: ELLIPTOCYTES OCC; TOXIC GRANULATION OCC
[2019-03-23 12:32] VITALS: BMI 24.0
[2019-03-23 14:15] VITALS: BP 145/76
[2019-03-23 15:47] VITALS: BP 146/74
[2019-03-23 21:37] VITALS: BP 121/83
[2019-03-24 00:49] VITALS: BP 141/68
--- NOTE | 2019-03-24 01:48 | NUR ---
PT RESTING IN BED. EYES CLOSED. NO SIGNS OF DISTRESS. BREATHING EVEN AND UNLABORED. IV SITE LT HAND DRESSING CLEAN DRY AND INTACT. NO SIGNS OF INFECTION. BOWEL SOUNDS ACTIVE. OSTOMY RT LOWER ABD. STOMA PINK IN COLOR. SCD ON. SON AT BEDSIDE. WILL CONTINUE PLAN OF CARE. CALL LIGHT IN REACH. BED LOWERED AND LOCKED. BED RAILS UP X2.
[2019-03-24 05:16] VITALS: BP 145/74
[2019-03-24 06:51] LABS: BASOPHILS 0.2 % (0-2); HEMATOCRIT 32.2 % (36.0-48.0); HEMOGLOBIN 10.8 g/dL (12-16); IMMATURE GRANULOCYTES 1.2 % (0-5); LYMPHOCYTES 25.9 % (15-50); MCH 28.7 pg (26.0-34.0); MCHC 33.5 g/dL (31.0-37.0); MEAN PLATELET VOLUME 9.4 fL (7.4-10.4); MONOCYTES 30.9 % (2-11); NEUTROPHILS 40.8 % (40-80); PLATELET COUNT 194 10x3/uL (130-400); RBC 3.76 10x6/uL (4.00-5.40); RDW 20.1 % (11.5-14.5)
[2019-03-24 07:11] LABS: MCV 85.6 fL (80.0-100.0)
[2019-03-24 07:25] LABS: CARBON DIOXIDE 22.7 mmol/L (21.0-32.0); CREATININE - SERUM 0.8 mg/dL (0.6-1.3); PHOSPHOROUS 2.5 mg/dL (2.5-4.9); POTASSIUM - SERUM 3.7 mmol/L (3.5-5.1)
[2019-03-24 07:28] LABS: MAGNESIUM - SERUM 1.8 mg/dL (1.8-2.4)
[2019-03-24 07:31] LABS: INR 2.91 (0.85-1.17); PROTIME 29.7 SECONDS (11.6-15.0)
[2019-03-24 08:16] VITALS: BP 153/83
--- NOTE | 2019-03-24 10:00 | NUR ---
ASSESSMENT PER FLOW SHEET. PT IS WITHOUT DISTRESS.FAMILY AT BEDSIDE.MONITORF OR NEEDS.CALL LIGHT IN REACH
[2019-03-24 12:32] VITALS: BMI 24.0
[2019-03-24 12:34] VITALS: BP 130/80
--- NOTE | 2019-03-24 14:30 | MORECARE ---
CASE MANAGEMENT DISCHARGE SUMMARY PATIENT: ELY PEREZ UNIT: [id number] ADM DATE: 03/23/19 AGE: 78 : 42 SEX: F ROOM/BED: D.2213 AUTHOR: MERLENE GARCIA PHYSICIAN: REFERRING PHYSICIAN: SHONNA PURCELL MD DATE OF SERVICE: 03/24/19 Discharge Plan Patient Name: ELY PEREZ Facility: [facility]:[place] : 1940 Planned Disposition: Home with Home Health Anticipated Discharge Date: Discharge Date: Expected LOS: Initial Reviewer: [email or web address] Initial Review Date: 03/22/2019 Generated: 03/24/19 3:30 pm Patient Name: ELY PREEZ Page [id number] at 1430 All edits/amendments must be made on the electronic document DICTATION DATE: 03/24/191428 SCOURING MACHINE TENDER: IVONNE 03/24/191428 RPT#: [id number] DC DATE: STATUS: ADM IN [facility] [address] [place] [address] END OF REPORT
--- NOTE | 2019-03-24 14:37 | MORECARE ---
CASE MANAGEMENT DISCHARGE SUMMARY PATIENT: ELY PEREZ UNIT: [id number] ADM DATE: 03/23/19 AGE: 78 : 42 SEX: F ROOM/BED: D.2213 AUTHOR: JOSEDOC PHYSICIAN: REFERRING PHYSICIAN: SHONNA PURCELL MD DATE OF SERVICE: 03/24/19 Discharge Plan Patient Name: ELY PEREZ Facility: [facility]:[place] : 1940 Planned Disposition: Home with Home Health Anticipated Discharge Date: Discharge Date: Expected LOS: Initial Reviewer: [id number] Initial Review Date: 03/22/2019 Generated: 03/24/19 3:37 pm Comments DCP- Discharge Planning Updated by [id number]: Yoko Wagoner on 03/24/19 1:[address] Patient Name: ELY PEREZ Admission Status: ER Accout number: [id number] Admission Date: 03-23-2019 : 1940 Admission Diagnosis: Attending: SHONNA PURCELL Current LOS: 1 Anticipated DC Date: Planned Disposition: Home with Home Health Primary Insurance: MEDICARE A & B Discharge Planning Comments: CM met with patient and son to complete initial dc planning assessment. CM educated patient on the CM role and verbal consent given by patient to complete assessment. Patient lives at home with her where she use to be independent with her care. At discharge patient plans to return home and feels this is a safe discharge. CM discussed availability of home health, rehab services, and medical equipment. She is current with [facility], but does not want to use them anymore. She would like to change to [facility]. [facility] signed for that. She has a walker, shower chair, and BSC at home. Patient denied known discharge needs at this time. I have also spoke with them at length about hospice vs home health. Granddaughter has contacted [facility]. Patient is thinking about what she would like to do. CM will continue to follow and will assist as needed with dc plans/needs. Vault Worker: Yoko Wagoner DCPIA - Discharge Planning Initial Assessment Updated by [id number]: Yoko Wagoner on 03/24/19 2:30 pm * Is the patient Alert and Oriented? Yes * How many steps to enter\exit or inside your home? * PCP [facility] * [facility]acy [facility] [place] * Preadmission Environment Home with Family * ADLs Independent * Equipment Bedside Commode Shower Chair Walker * List name and contact numbers for known caregivers / representatives who currently or will assist patient after discharge: BRENNON PEREZ [phone] * Verbal permission to speak to the caregivers and representatives has been obtained from the patient. Yes * Community resources currently utilized Home Health * Please name any agencies selected above. [facility], BUT WANTS TO SWITCH TO [facility] * Additional services required to return to the preadmission environment? Yes * Can the patient safely return to the preadmission environment? Yes * Has this patient been hospitalized within the prior 30 days at any hospital? No Coverage Notice Reviewer: [id number] Gianfranco Wagoner Notice Issued Date-Time: 03/24/2019 8:35 Notice Type: Patient Choice Letter Notice Delivered To: Patient Relationship to Patient: Teacher Of The Handicapped Name: Delivery Method: - Yolanda Days: Prior Verbal Notification: Recipient Understood Notice: Yes Recipient Signature: Yes Med Rec Note Co-signed by Attending: Coverage Notice Comment: does NOT want [facility] wants to change to [facility] Last DP export: 03/24/19 1:30 p Patient Name: ELY PEREZ Page [phone] at 1437 All edits/amendments must be made on the electronic document DICTATION DATE: 03/24/191436 ELECTRICAL PRODUCTS ENGINEER: IVONNE 03/24/19 1437 RPT#: [id number] DC DATE: STATUS: ADM IN [facility] [address] [place] [address] END OF REPORT
[2019-03-24 16:08] VITALS: BP 137/68
--- NOTE | 2019-03-24 18:58 | NUR ---
SLEEPING,WITHOUT SIGNS OF DISTRESS.WITHOUT EMESIS AT PRESENT.CONT PLAN OF CARE
--- NOTE | 2019-03-24 20:10 | NUR ---
LYING QUEITLY WITH NO DISTRESS NOTED. RESP UNLABORED. IV TO LEFT HAND INTACT WITHOUT DRAINAGE NOTED. DENIES NAUSEA AT THIS TIME. COLOSTOMY TO RIGHT ABD WITH STOMA PINK. CL IN REACH. FAMILY AT BEDSIDE.
[2019-03-24 22:07] VITALS: BP 135/70
[2019-03-25 01:27] VITALS: BP 124/74
[2019-03-25 06:30] LABS: HEMATOCRIT 32.1 % (36.0-48.0); HEMOGLOBIN 10.7 g/dL (12-16); MCH 28.9 pg (26.0-34.0); MCHC 33.3 g/dL (31.0-37.0); MCV 86.8 fL (80.0-100.0); MEAN PLATELET VOLUME 9.5 fL (7.4-10.4); PLATELET COUNT 189 10x3/uL (130-400); RDW 20.2 % (11.5-14.5); WBC 5.3 10x3/uL (4.8-10.8)
[2019-03-25 06:47] LABS: CALC OSMOLALITY 295 mosm/kg (275-300); CALCIUM 8.3 mg/dL (8.5-10.1); CHLORIDE - SERUM 115 mmol/L (98-107); CREATININE - SERUM 0.6 mg/dL (0.6-1.3); GLUCOSE 148 mg/dL (74-106); MAGNESIUM - SERUM 1.6 mg/dL (1.8-2.4); PHOSPHOROUS 2.4 mg/dL (2.5-4.9); POTASSIUM - SERUM 3.2 mmol/L (3.5-5.1); SODIUM 146 mmol/L (136-145); UREA NITROGEN 17 mg/dL (7-18); eGFR NON AFRICAN AMERICAN > 90 mL/min (90-120)
[2019-03-25 07:02] LABS: INR 3.91 (0.85-1.17); PROTIME 37.5 SECONDS (11.6-15.0)
--- NOTE | 2019-03-25 07:23 | NUR ---
Nutrition follow-up: Visited with pt and family re: food preferences Pt reports unable to hold anything down; however, pt has had ~1/2 of an Ensure Clear and is feeling okay at this time. Pt would like to try thin cream of wheat with butter, sugar. Will ask physician if diet can be advanced to full liquids RDN following.
[2019-03-25 09:39] VITALS: BP 141/73
[2019-03-25 09:56] LABS: ANISOCYTOSIS OCC; EOSINOPHILS 2 % (0-7); HYPOCHROMASIA OCC; LYMPHOCYTES 27 % (15-50); MONOCYTES 14 % (2-11); NEUTROPHILS 43 % (40-80); PLATELET ESTIMATE NORMAL
[2019-03-25 12:56] VITALS: BP 133/79
[2019-03-25 17:23] VITALS: BP 135/69
--- NOTE | 2019-03-25 20:30 | NUR ---
AWAKE,ALERT,NO COMPLAITNS VOICED AT PRESENT TIME. NO COMPLAITNS OF NAUSEA. IV TO LEFT HAND WITHOUT REDNESS OR EDEMA NOTED. CL IN REACH.FAMILY AT BEDSIDE.
[2019-03-25 21:10] VITALS: BP 108/67
--- NOTE | 2019-03-26 05:00 | NUR ---
I have reviewed this patient and I concur with the Shift Assessment completed by the Licensed Practical Nurse today this shift.
[2019-03-26 05:38] VITALS: BP 128/87
[2019-03-26 06:10] LABS: INR 4.51 (0.85-1.17)
[2019-03-26 07:11] LABS: BASOPHILS 0.2 % (0-2); EOSINOPHILS 0 % (0-7); HEMATOCRIT 33.6 % (36.0-48.0); HEMOGLOBIN 11.3 g/dL (12-16); IMMATURE GRANULOCYTES 1.9 % (0-5); LYMPHOCYTES 22.3 % (15-50); MCH 28.8 pg (26.0-34.0); MCHC 33.6 g/dL (31.0-37.0); MCV 85.7 fL (80.0-100.0); MEAN PLATELET VOLUME 9.5 fL (7.4-10.4); MONOCYTES 13.2 % (2-11); NEUTROPHILS 62.4 % (40-80); RBC 3.92 10x6/uL (4.00-5.40); RDW 20.3 % (11.5-14.5); WBC 5.3 10x3/uL (4.8-10.8)
[2019-03-26 07:23] LABS: PLATELET COUNT 228 10x3/uL (130-400)
[2019-03-26 08:02] LABS: ALBUMIN 1.8 g/dL (3.4-5.0); ALKALINE PHOSPHATASE 56 U/L (46-116); ALT (SGPT) 10 U/L (10-68); BILIRUBIN - TOTAL 0.34 mg/dL (0.2-1.3); CALC OSMOLALITY 294 mosm/kg (275-300); CALCIUM 8.2 mg/dL (8.5-10.1); CARBON DIOXIDE 22.4 mmol/L (21.0-32.0); CHLORIDE - SERUM 112 mmol/L (98-107); CREATININE - SERUM 0.7 mg/dL (0.6-1.3); GLUCOSE 170 mg/dL (74-106); MAGNESIUM - SERUM 1.6 mg/dL (1.8-2.4); PROTEIN - SERUM 4.7 g/dL (6.4-8.2); SODIUM 145 mmol/L (136-145); UREA NITROGEN 18 mg/dL (7-18); eGFR NON AFRICAN AMERICAN 86 mL/min (90-120)
[2019-03-26 08:08] LABS: POTASSIUM - SERUM 3.9 mmol/L (3.5-5.1)
[2019-03-26 09:40] VITALS: BP 122/81
[2019-03-26 13:03] VITALS: BP 134/71
--- NOTE | 2019-03-26 13:51 | NUR ---
EMPTIED COLOSTOMY REQUESTED. CONTENTS SLIGHTLY GREEN WITH THE COSISTENCY OF WATER. CL IN REACH. FAMILY AT BEDSIDE. WCTM
--- NOTE | 2019-03-26 14:03 | NUR ---
Rehab Note- Acute Inpatient Rehab prescreen order received. The patient is feeling much better & has ambulated with PT without any difficulty & wants to discahrge home. THank you for this referral! Stacy Dawson RN Clinical Liaison, [facility] Rehab
[2019-03-26 20:26] VITALS: BP 127/47
--- NOTE | 2019-03-26 21:30 | NUR ---
PT VOMITING GREEN EMESIS. GAVE ZOFRAN 4 MG IV PUSH. EMPTIED COLOSTOMY 500 CC'S WATERY STOOL. COMPLETE ASSESSMENT PER FLOW-SHEET. NO OTHER NEEDS. WILL CONTINUE TO MONITOR.
[2019-03-27 00:48] VITALS: BP 138/71
[2019-03-27 05:17] VITALS: BP 140/74
[2019-03-27 05:22] LABS: CALC OSMOLALITY 296 mosm/kg (275-300); CALCIUM 7.7 mg/dL (8.5-10.1); CARBON DIOXIDE 27.5 mmol/L (21.0-32.0); CHLORIDE - SERUM 113 mmol/L (98-107); CREATININE - SERUM 0.7 mg/dL (0.6-1.3); GLUCOSE 162 mg/dL (74-106); MAGNESIUM - SERUM 1.7 mg/dL (1.8-2.4); PHOSPHOROUS 2.4 mg/dL (2.5-4.9); POTASSIUM - SERUM 3.6 mmol/L (3.5-5.1); SODIUM 146 mmol/L (136-145); UREA NITROGEN 17 mg/dL (7-18); eGFR NON AFRICAN AMERICAN 86 mL/min (90-120)
[2019-03-27 05:23] LABS: HEMATOCRIT 33.3 % (36.0-48.0); HEMOGLOBIN 11.1 g/dL (12-16); MCH 28.9 pg (26.0-34.0); MCHC 33.3 g/dL (31.0-37.0); MCV 86.7 fL (80.0-100.0); MEAN PLATELET VOLUME 9.9 fL (7.4-10.4); PLATELET COUNT 217 10x3/uL (130-400); RBC 3.84 10x6/uL (4.00-5.40); RDW 20.5 % (11.5-14.5)
[2019-03-27 05:31] LABS: INR 4.1 (0.85-1.17); PROTIME 38.9 SECONDS (11.6-15.0)
[2019-03-27 05:47] LABS: EOSINOPHILS 3 % (0-7); LYMPHOCYTES 27 % (15-50); MONOCYTES 21 % (2-11); NEUTROPHILS 49 % (40-80); PLATELET ESTIMATE NORMAL
[2019-03-27 08:08] VITALS: BP 119/65
--- NOTE | 2019-03-27 10:53 | NUR ---
PT ALERT X 4. BREATH SOUNDS CLEAR BILAT. IV TO LEFT HAND, PATENT, DRESSING CDI. PT REPORTING NAUSEA, MEDICATED PER ORDERS, WILL MONITOR. COLOSTOMY EMPTIED, 250 ML. FAMILY AT BEDSIDE. BED LOW, CALL LIGHT IN REACH. NO OTHER NEEDS AT THIS TIME.
[2019-03-27 12:24] VITALS: BP 113/57
[2019-03-27 17:24] VITALS: BP 121/87
[2019-03-27 20:58] VITALS: BP 137/68
[2019-03-28 04:56] LABS: BASOPHILS 0.5 % (0-2); EOSINOPHILS 1.4 % (0-7); HEMATOCRIT 33.9 % (36.0-48.0); HEMOGLOBIN 11.2 g/dL (12-16); IMMATURE GRANULOCYTES 1.1 % (0-5); LYMPHOCYTES 33.3 % (15-50); MCH 28.9 pg (26.0-34.0); MCV 87.6 fL (80.0-100.0); MEAN PLATELET VOLUME 9.6 fL (7.4-10.4); MONOCYTES 22.4 % (2-11); NEUTROPHILS 41.3 % (40-80); PLATELET COUNT 227 10x3/uL (130-400); RBC 3.87 10x6/uL (4.00-5.40); WBC 4.4 10x3/uL (4.8-10.8)
[2019-03-28 05:01] LABS: CALC OSMOLALITY 292 mosm/kg (275-300); CALCIUM 7.7 mg/dL (8.5-10.1); CARBON DIOXIDE 27.7 mmol/L (21.0-32.0); CHLORIDE - SERUM 112 mmol/L (98-107); CREATININE - SERUM 0.6 mg/dL (0.6-1.3); GLUCOSE 139 mg/dL (74-106); MAGNESIUM - SERUM 2.1 mg/dL (1.8-2.4); PHOSPHOROUS 2.8 mg/dL (2.5-4.9); POTASSIUM - SERUM 3.4 mmol/L (3.5-5.1); SODIUM 146 mmol/L (136-145); UREA NITROGEN 13 mg/dL (7-18); eGFR NON AFRICAN AMERICAN > 90 mL/min (90-120)
[2019-03-28 05:04] LABS: INR 4.69 (0.85-1.17); PROTIME 43.3 SECONDS (11.6-15.0)
[2019-03-28 05:24] VITALS: BP 111/72
[2019-03-28 08:34] VITALS: BP 117/72
--- NOTE | 2019-03-28 10:33 | NUR ---
PT ALERT X 4. BREATH SOUNDS CLEAR BILAT. COLOSTOMY IN PLACE. IV TO LEFT HAND, PATENT, DRESSING CDI. PT REPORTING CONTINUED NAUSEA. NO PAIN AT THIS TIME. FAMILY AT BEDSIDE. BED LOW, CALL LIGHT IN REACH. NO OTHER NEEDS AT THIS TIME.
[2019-03-28 12:14] VITALS: BP 124/70
[2019-03-28 17:04] VITALS: BP 119/62
[2019-03-28 20:00] VITALS: BP 124/69
--- NOTE | 2019-03-28 21:00 | NUR ---
SUPINE IN BED A/O WITH NO SIGNS OF ACTUE DISTRESS NOTED. IV TO THE LT HAND DCI. SISTER AT BEDSIDE. WHEN ADMIN EVENING MEDS PT BEGAN TO VOMIT CLEAR EMESIS AFTER GIVING CHEMO MOUTHWASH. NO PILLS WERE SEEN IN EMESIS. OSTOMY NOTED IN RUQ. STOMA PINK AND MOIST WITH GREEN LIQUID BOWEL. CONTINUE WITH PLAN OF CARE.
[2019-03-29 04:00] VITALS: BP 136/67
[2019-03-29 06:44] LABS: CALC OSMOLALITY 291 mosm/kg (275-300); CALCIUM 7.4 mg/dL (8.5-10.1); CARBON DIOXIDE 28.4 mmol/L (21.0-32.0); CHLORIDE - SERUM 111 mmol/L (98-107); CREATININE - SERUM 0.6 mg/dL (0.6-1.3); GLUCOSE 129 mg/dL (74-106); MAGNESIUM - SERUM 1.7 mg/dL (1.8-2.4); POTASSIUM - SERUM 3.7 mmol/L (3.5-5.1); SODIUM 145 mmol/L (136-145); UREA NITROGEN 14 mg/dL (7-18); eGFR NON AFRICAN AMERICAN > 90 mL/min (90-120)
[2019-03-29 06:58] LABS: HEMATOCRIT 33.1 % (36.0-48.0); HEMOGLOBIN 10.8 g/dL (12-16); MCHC 32.6 g/dL (31.0-37.0); MCV 88.7 fL (80.0-100.0); MEAN PLATELET VOLUME 9.6 fL (7.4-10.4); PLATELET COUNT 191 10x3/uL (130-400); RBC 3.73 10x6/uL (4.00-5.40); RDW 21.4 % (11.5-14.5); WBC 4.1 10x3/uL (4.8-10.8)
[2019-03-29 08:31] LABS: INR 1.62 (0.85-1.17); PROTIME 18.7 SECONDS (11.6-15.0)
[2019-03-29 08:55] VITALS: BP 121/80
[2019-03-29 09:09] LABS: EOSINOPHILS 5 % (0-7); LYMPHOCYTES 32 % (15-50); MONOCYTES 11 % (2-11); NEUTROPHILS 46 % (40-80); PLATELET ESTIMATE NORMAL
[2019-03-29 09:10] LABS: ANISOCYTOSIS OCC; SPHEROCYTES OCC; TOXIC GRANULATION OCC
--- NOTE | 2019-03-29 09:17 | NUR ---
PT ALERT X 4. BREATH SOUNDS CLEAR BILAT. IV TO LEFT HAND, PATENT, DRESSING CDI. PT CONTINUES HAVING NAUSEA. LINENS CHANGED. BED LOW, CALL LIGHT IN REACH. NO OTHER NEEDS AT THIS TIME.
--- NOTE | 2019-03-29 09:26 | NUR ---
Nutrition follow-up: Pt continues with N/V; unable to hold down liquids Clear liquid diet continues ProcalAmine PPN infusing @ 50 ml/hr Labs reviewe Reglan increased Colostomy with water stool Wt: 140# RDN following.
[2019-03-29 12:27] VITALS: BP 109/73
[2019-03-29 16:25] VITALS: BP 121/67
[2019-03-29 20:00] VITALS: BP 126/64
--- NOTE | 2019-03-30 01:55 | NUR ---
PT RESTING IN BED. EYES CLOSED. NO SIGNS OF DISTRESS. BREATHING EVEN AND UNLABORED. IV SITE LT HAND DRESSING CLEAN DRY AND INTACT. NO SIGNS OF INFECTION. SKIN CLEAN DRY AND INTACT. COLOSTOMY RT LOWER ABD STOMA LIGHT PINK. NO LOWER LEG SWELLING PRESENT. WILL CONTINUE PLAN OF CARE. CALL LIGHT IN REACH. BED LOWERED AND LOCKED. DAUGHTER AT BEDSIDE. BED RAILS UPX2.
--- NOTE | 2019-03-30 04:24 | NUR ---
I have reviewed this patient and I concur with the Shift Assessment completed by the Licensed Practical Nurse today this shift.
[2019-03-30 04:51] LABS: BASOPHILS 0.5 % (0-2); EOSINOPHILS 0.9 % (0-7); HEMATOCRIT 31.8 % (36.0-48.0); HEMOGLOBIN 10.3 g/dL (12-16); IMMATURE GRANULOCYTES 1.2 % (0-5); LYMPHOCYTES 30.8 % (15-50); MCH 28.8 pg (26.0-34.0); MCHC 32.4 g/dL (31.0-37.0); MCV 88.8 fL (80.0-100.0); MEAN PLATELET VOLUME 9.4 fL (7.4-10.4); MONOCYTES 23.4 % (2-11); NEUTROPHILS 43.2 % (40-80); RBC 3.58 10x6/uL (4.00-5.40); RDW 21.1 % (11.5-14.5); WBC 4.3 10x3/uL (4.8-10.8)
[2019-03-30 04:57] LABS: PLATELET COUNT 152 10x3/uL (130-400)
[2019-03-30 05:08] VITALS: BP 138/85
[2019-03-30 05:09] LABS: CALC OSMOLALITY 282 mosm/kg (275-300); CALCIUM 7.3 mg/dL (8.5-10.1); CARBON DIOXIDE 29.7 mmol/L (21.0-32.0); CHLORIDE - SERUM 108 mmol/L (98-107); CREATININE - SERUM 0.6 mg/dL (0.6-1.3); GLUCOSE 125 mg/dL (74-106); MAGNESIUM - SERUM 1.9 mg/dL (1.8-2.4); POTASSIUM - SERUM 3.7 mmol/L (3.5-5.1); SODIUM 142 mmol/L (136-145); UREA NITROGEN 11 mg/dL (7-18); eGFR NON AFRICAN AMERICAN > 90 mL/min (90-120)
--- NOTE | 2019-03-30 07:15 | NUR ---
REC'D IN BED AWAKE AND ALERT. RESP EVEN AND UNLABORED WITH NO DISTRESS NOTED. CAN EXPRESS NEEDS AND WANTS. NO C/O NOTED OR VOICED. ASSESSMENT COMPLETED. C/L IN REACH AT BEDSIDE.
[2019-03-30 08:56] VITALS: BP 131/65
[2019-03-30 10:47] VITALS: Ht 162.6 cm; Wt 63.5 kg
--- NOTE | 2019-03-30 11:48 | NUR ---
I have reviewed this patient and I concur with the Shift Assessment completed by the Licensed Practical Nurse today this shift.
[2019-03-30 12:55] VITALS: BP 126/66
[2019-03-30 16:12] LABS: PROTIME 15.4 SECONDS (11.6-15.0)
[2019-03-30 16:25] LABS: INR 1.28 (0.85-1.17)
[2019-03-30 16:45] VITALS: BP 128/78
[2019-03-30 20:00] VITALS: BP 141/71
--- NOTE | 2019-03-30 21:30 | NUR ---
AWAKE,ALERT,NO COMPLAINTS VOICED RESP EVEN AND UNLABORED. NO DISTRESS NOTED. IV TO LEFT HAND INTACT WITHOUT REDNESS OR EDEMA NOTED. ABD SOFT NONDISTENDED WITH BOWEL SOUNDS PRESENT. COLOSTOMY LEAKING.APPLIANCE CHANGED. CL IN REACH
[2019-03-31] VITALS: BP 132/68
--- NOTE | 2019-03-31 03:18 | NUR ---
RESTING QUIETLY AT THIS TIME, FAMILY IS AT BEDSIDE. NO S/S OF ANY ACUTE DISTRESS NOTED. WILL NOTE ANY CHANGE.
[2019-03-31 04:00] VITALS: BP 113/64
--- NOTE | 2019-03-31 04:19 | NUR ---
I have reviewed this patient and I concur with the Shift Assessment completed by the Licensed Practical Nurse today this shift.
--- NOTE | 2019-03-31 05:27 | NUR ---
IN BED WITH EYES CLOSED, AROUSES EASILY TO VERBAL STIMULI, SHOWS NO S/S OF ANY ACUTE DISTRESS. WILL NOTE ANY CHANGE.
[2019-03-31 05:59] LABS: HEMATOCRIT 30.1 % (36.0-48.0); HEMOGLOBIN 9.8 g/dL (12-16); MCH 28.6 pg (26.0-34.0); MCHC 32.6 g/dL (31.0-37.0); MCV 87.8 fL (80.0-100.0); MEAN PLATELET VOLUME 10.3 fL (7.4-10.4); PLATELET COUNT 179 10x3/uL (130-400); RBC 3.43 10x6/uL (4.00-5.40); RDW 21.1 % (11.5-14.5); WBC 4.3 10x3/uL (4.8-10.8)
[2019-03-31 06:31] LABS: CALC OSMOLALITY 277 mosm/kg (275-300); CALCIUM 7.1 mg/dL (8.5-10.1); CARBON DIOXIDE 28.8 mmol/L (21.0-32.0); CHLORIDE - SERUM 106 mmol/L (98-107); CREATININE - SERUM 0.4 mg/dL (0.6-1.3); GLUCOSE 114 mg/dL (74-106); MAGNESIUM - SERUM 1.8 mg/dL (1.8-2.4); POTASSIUM - SERUM 3.1 mmol/L (3.5-5.1); SODIUM 140 mmol/L (136-145); UREA NITROGEN 8 mg/dL (7-18); eGFR NON AFRICAN AMERICAN > 90 mL/min (90-120)
[2019-03-31 07:59] VITALS: BP 128/69
[2019-03-31 09:33] LABS: LYMPHOCYTES 26 % (15-50); MONOCYTES 22 % (2-11); NEUTROPHILS 46 % (40-80); PLATELET ESTIMATE NORMAL; ROULEAUX OCC
--- NOTE | 2019-03-31 10:45 | NUR ---
PT RESTING IN BED. NO SIGNS OF DISTRESS. IV TO LEFT HAND PATENT NO REDNESS OR TENDERNESS. RED AREA TO BUTTOCKS. CREAM APPLIED. HAS COLOSTOMY BAG EMPTIED. DENIES ANY FURTHER NEED AT THIS TIME. CALL LIGHT IN REACH. BED LOW POSITION. FAMILY AT BEDSIDE.
[2019-03-31 11:55] VITALS: BP 137/57
--- NOTE | 2019-03-31 13:21 | NUR ---
Nutrition follow-up: chart reviewed Pt now assessed with severe malnutrition of chronic illness R/T colon cancer s/p chemotherapy AEB: 1. ~16% weight loss in 1 month (165# Mar 02 - now 140#) 2. < 75% intake of estimated energy needs for > 1 month due to unable to keep anything down after chemotherapy. Pts diet just advanced today and pt is starting to feel better. Jesse provide food choices and honor food preferences. Will offer nutritional supplements. RDN following.
[2019-03-31 16:01] VITALS: BP 131/83
--- NOTE | 2019-03-31 19:04 | NUR ---
I have reviewed this patient and I concur with the Shift Assessment completed by the Licensed Practical Nurse today this shift.
[2019-03-31 21:09] VITALS: BP 117/69
--- NOTE | 2019-03-31 22:30 | NUR ---
PT IV INFULTRATED. STARTED IV LT FA ATTEMPT X1. PT TOLERATED WELL. 20G. WILL CONTINUE PLAN OF CARE. CALL LIGHT IN REACH.
[2019-04-01 01:06] VITALS: BP 133/61
--- NOTE | 2019-04-01 04:11 | NUR ---
I have reviewed this patient and I concur with the Shift Assessment completed by the Licensed Practical Nurse today this shift.
--- NOTE | 2019-04-01 04:29 | NUR ---
PT RESTING IN BED. EYES CLOSED. NO SIGNS OF DISTRESS. BREATHING EVEN AND UNLABORED. IV SITE LT HAND DRESSING CLEAN DRY AND INTACT NO SIGNS OF INFECTION. BOWEL SOUNDS ACTIVE. COLOSTOMY RT LOWER ABD. WILL CONTINUE PLAN OF CARE. CALL LIGHT IN REACH. BED LOWERED AND LOCKED. BED RAILS UP X2. DAUGHTER AT BEDSIDE.
[2019-04-01 05:37] VITALS: BP 127/66
[2019-04-01 06:51] LABS: INR 1.46 (0.85-1.17); PROTIME 17.2 SECONDS (11.6-15.0)
[2019-04-01 06:54] LABS: BASOPHILS 0.5 % (0-2); LYMPHOCYTES 29.1 % (15-50); MCH 28.4 pg (26.0-34.0); MCHC 32.3 g/dL (31.0-37.0); MCV 88.1 fL (80.0-100.0); MONOCYTES 24.4 % (2-11); PLATELET COUNT 194 10x3/uL (130-400); RBC 3.52 10x6/uL (4.00-5.40); RDW 21.6 % (11.5-14.5); WBC 4.1 10x3/uL (4.8-10.8)
[2019-04-01 06:59] LABS: CALC OSMOLALITY 273 mosm/kg (275-300); CALCIUM 7.1 mg/dL (8.5-10.1); CARBON DIOXIDE 30.3 mmol/L (21.0-32.0); CHLORIDE - SERUM 103 mmol/L (98-107); CREATININE - SERUM 0.5 mg/dL (0.6-1.3); GLUCOSE 103 mg/dL (74-106); MAGNESIUM - SERUM 1.7 mg/dL (1.8-2.4); SODIUM 138 mmol/L (136-145); UREA NITROGEN 7 mg/dL (7-18); eGFR NON AFRICAN AMERICAN > 90 mL/min (90-120)
--- NOTE | 2019-04-01 07:30 | NUR ---
PT RESTING IN BED QUIETLY. RESP EVEN AND UNLABORED. DENIES PAIN AT THIS TIME. IV TO LEFT FOREARM WITH PROCALAMINE @ 50ML/HR, NS W/ 20KCL @ 50 INFUSING VIA PUMP, SITE WITHOUT REDNESS OR EDEMA. COLOSTOMY PATENT, BAG INTACT. DENIES FURTHER NEEDS AT THIS TIME. CL WITHIN REACH. ENCOURAGED TO CALL WITH NEEDS. CONTINUE POC
[2019-04-01 08:03] VITALS: BP 133/56
[2019-04-01 12:17] VITALS: BP 101/55
[2019-04-01 15:39] VITALS: BP 117/55
--- NOTE | 2019-04-01 19:26 | NUR ---
IN BED WITH FAMILY AT BEDSIDE, IV TO LEFT FOREARM PATENT WITH PROCAL AND NS+20K INFUSING PER ORDERS, COLOSTOMY IS INTACT, ABLE TO VOICE NEEDS. DENIES ANY PAIN AT THIS TIME.
[2019-04-01 20:05] VITALS: BP 113/64
--- NOTE | 2019-04-01 23:03 | NUR ---
I have reviewed this patient and I concur with the Shift Assessment completed by the Licensed Practical Nurse today this shift.
--- NOTE | 2019-04-02 04:32 | NUR ---
RESTING QUIELTY IN BED WITH EYES CLOSED, FAMILY AT BEDSIDE. WILL NOTE ANY CHANGE.
[2019-04-02 04:55] VITALS: BP 113/61
[2019-04-02 06:43] LABS: INR 1.58 (0.85-1.17); PROTIME 18.2 SECONDS (11.6-15.0)
[2019-04-02 06:55] LABS: CALC OSMOLALITY 275 mosm/kg (275-300); CALCIUM 7.7 mg/dL (8.5-10.1); CARBON DIOXIDE 31.3 mmol/L (21.0-32.0); CHLORIDE - SERUM 104 mmol/L (98-107); CREATININE - SERUM 0.6 mg/dL (0.6-1.3); GLUCOSE 111 mg/dL (74-106); MAGNESIUM - SERUM 1.8 mg/dL (1.8-2.4); POTASSIUM - SERUM 3.2 mmol/L (3.5-5.1); SODIUM 139 mmol/L (136-145); eGFR NON AFRICAN AMERICAN > 90 mL/min (90-120)
[2019-04-02 06:59] LABS: UREA NITROGEN 4 mg/dL (7-18)
--- NOTE | 2019-04-02 07:00 | NUR ---
LYING IN BED,WITHOUT DISTRESS.DENIES NEEDS.CALL LIGHT IN REACH
[2019-04-02 07:13] LABS: HEMATOCRIT 29.9 % (36.0-48.0); HEMOGLOBIN 9.9 g/dL (12-16); MCH 28.9 pg (26.0-34.0); MCHC 33.1 g/dL (31.0-37.0); MCV 87.2 fL (80.0-100.0); MEAN PLATELET VOLUME 9.7 fL (7.4-10.4); PLATELET COUNT 187 10x3/uL (130-400); RBC 3.43 10x6/uL (4.00-5.40); RDW 21.3 % (11.5-14.5); WBC 4.2 10x3/uL (4.8-10.8)
[2019-04-02 08:04] VITALS: BP 132/66
[2019-04-02 08:07] LABS: EOSINOPHILS 2 % (0-7); LYMPHOCYTES 15 % (15-50); MONOCYTES 23 % (2-11); NEUTROPHILS 57 % (40-80)
[2019-04-02 08:08] LABS: PLATELET ESTIMATE NORMAL
[2019-04-02] MEDS ORDERED: ELIQUIS5 MG PO (10:46)
[2019-04-02] MEDS ORDERED: CALMOSEPTINE OI71 GM TOPICAL (10:47)
[2019-04-02] MEDS ORDERED: SCOPOLAMINE1 EACH TRANSDERM (10:48)
[2019-04-02] MEDS ORDERED: PEPCID AC20 MG PO (10:49)
[2019-04-02] MEDS ORDERED: ONCOLOGY MOUTHWASH PO (10:49)
[2019-04-02 12:50] VITALS: BP 110/74
--- NOTE | 2019-04-02 13:06 | MORECARE ---
CASE MANAGEMENT DISCHARGE SUMMARY PATIENT: ELY PEREZ UNIT: [id number] ADM DATE: 03/23/19 AGE: 78 : 42 SEX: F ROOM/BED: D.2213 AUTHOR: JOSEDOC PHYSICIAN: REFERRING PHYSICIAN: SHONNA PURCELL MD DATE OF SERVICE: 04/02/19 Discharge Plan Patient Name: ELY PEREZ Facility: [facility]:[place] : 1940 Planned Disposition: Home with Home Health Anticipated Discharge Date: Discharge Date: Expected LOS: Initial Reviewer: [email or web address] Initial Review Date: 03/22/2019 Generated: 04/02/19 2:06 pm Comments DCP- Discharge Planning Updated by [email or web address]: Yoko Wagoner on 04/02/19 11:[address] MET WITH PATIENT THIS MORNING AND SHE WOULD LIKE TO GO HOME WITH [facility], AMANDA SIGNED AND PLACED IN CHART. IMM SERVED AND EXPLAINED. SENT REFERRAL TO [facility] VIA [facility]. FAMILY AT BEDSIDE, DENIES ANY OTHER NEEDS DCP- Discharge Planning Updated by [id number]: Yoko Wagoner on 03/24/19 1:[address] Patient Name: ELY PEREZ Admission Status: ER Accout number: [id number] Admission Date: 03-23-2019 : 1940 Admission Diagnosis: Attending: SHONNA PURCELL Current LOS: 1 Anticipated DC Date: Planned Disposition: Home with Home Health Primary Insurance: MEDICARE A & B Discharge Planning Comments: CM met with patient and son to complete initial dc planning assessment. CM educated patient on the CM role and verbal consent given by patient to complete assessment. Patient lives at home with her where she use to be independent with her care. At discharge patient plans to return home and feels this is a safe discharge. CM discussed availability of home health, rehab services, and medical equipment. She is current with [facility], but does not want to use them anymore. She would like to change to [facility]. AMANDA signed for that. She has a walker, shower chair, and BSC at home. Patient denied known discharge needs at this time. I have also spoke with them at length about hospice vs home health. Granddaughter has contacted [facility]. Patient is thinking about what she would like to do. CM will continue to follow and will assist as needed with dc plans/needs. Transmission Tester: Yoko Wagoner DCPIA - Discharge Planning Initial Assessment Updated by [email or web address]: Yoko Wagoner on 03/24/19 2:30 pm * Is the patient Alert and Oriented? Yes * How many steps to enter\exit or inside your home? * PCP [facility] * [facility] [place] * Preadmission Environment Home with Family * ADLs Independent * Equipment Bedside Commode Shower Chair Walker * List name and contact numbers for known caregivers / representatives who currently or will assist patient after discharge: BRENNON PEREZ [phone] * Verbal permission to speak to the caregivers and representatives has been obtained from the patient. Yes * Community resources currently utilized Home Health * Please name any agencies selected above. [facility], BUT WANTS TO SWITCH TO [facility] * Additional services required to return to the preadmission environment? Yes * Can the patient safely return to the preadmission environment? Yes * Has this patient been hospitalized within the prior 30 days at any hospital? No Coverage Notice Reviewer: [id number] Gianfranco Wagoner Notice Issued Date-Time: 03/24/2019 8:35 Notice Type: Patient Choice Letter Notice Delivered To: Patient Relationship to Patient: Teacher Assistant Name: Delivery Method: - Yolanda Days: Prior Verbal Notification: Recipient Understood Notice: Yes Recipient Signature: Yes Med Rec Note Co-signed by Attending: Coverage Notice Comment: does NOT want [facility] wants to change to [facility] Reviewer: [id number] Gianfranco Wagoner Notice Issued Date-Time: 04/02/2019 9:15 Notice Type: IM Discharge Notice Notice Delivered To: Patient Relationship to Patient: Teacher Assistant Name: Delivery Method: HAND - Hand Delivered Yolanda Days: Prior Verbal Notification: Recipient Understood Notice: Yes Recipient Signature: Yes Med Rec Note Co-signed by Attending: Coverage Notice Comment: Last DP export: 03/24/19 1:37 p Patient Name: ELY PERZE Page [phone] at 1306 All edits/amendments must be made on the electronic document DICTATION DATE: 04/02/19 1306 HAND TUBE WINDER: IVONNE 04/02/19 1306 RPT#: [id number] DC DATE: STATUS: ADM IN [facility] [address] [place] [address] END OF REPORT
--- NOTE | 2019-04-02 15:01 | NUR ---
DISCHARGE INSTRUCTIONS,STATES UNDERSTANDING. PT AND FAMILY INSTRUCTED TO GO BY DR CHAMBERLAIN OFFICE FOR SAMPLE PACKS OF ELIQUIS. DISCOUNT CARD FOR [facility] GIVEN TO PT.
--- NOTE | 2019-04-06 09:49 | MORECARE ---
CASE MANAGEMENT DISCHARGE SUMMARY PATIENT: ELY PEREZ UNIT: [id number] ADM DATE: 03/23/19 AGE: 78 : 42 SEX: F ROOM/BED: D.2213 AUTHOR: JOSEDOC PHYSICIAN: REFERRING PHYSICIAN: SHONNA PURCELL MD DATE OF SERVICE: 04/06/19 Discharge Plan Patient Name: ELY PEREZ Facility: [facility]:[place] : 1940 Planned Disposition: Home with Home Health Anticipated Discharge Date: Discharge Date: 04/02/2019 Expected LOS: 0 Initial Reviewer: [email or web address] Initial Review Date: 03/22/2019 Generated: 04/06/19 10:49 am Comments DCP- Discharge Planning Updated by [email or web address]: Yoko Wagoner on 04/02/19 11:[address] MET WITH PATIENT THIS MORNING AND SHE WOULD LIKE TO GO HOME WITH [facility], AMANDA SIGNED AND PLACED IN CHART. IMM SERVED AND EXPLAINED. SENT REFERRAL TO [facility] VIA [facility]. FAMILY AT BEDSIDE, DENIES ANY OTHER NEEDS DCP- Discharge Planning Updated by [email or web address]: Yoko Wagoner on 03/24/19 1:[address] Patient Name: ELY PEREZ Admission Status: ER Accout number: [id number] Admission Date: 03-23-2019 : 1940 Admission Diagnosis: Attending: SHONNA PURCELL Current LOS: 1 Anticipated DC Date: Planned Disposition: Home with Home Health Primary Insurance: MEDICARE A & B Discharge Planning Comments: CM met with patient and son to complete initial dc planning assessment. CM educated patient on the CM role and verbal consent given by patient to complete assessment. Patient lives at home with her where she use to be independent with her care. At discharge patient plans to return home and feels this is a safe discharge. CM discussed availability of home health, rehab services, and medical equipment. She is current with [facility] home health, but does not want to use them anymore. She would like to change to [facility]. AMANDA signed for that. She has a walker, shower chair, and BSC at home. Patient denied known discharge needs at this time. I have also spoke with them at length about hospice vs home health. Granddaughter has contacted [facility]. Patient is thinking about what she would like to do. CM will continue to follow and will assist as needed with dc plans/needs. Co Chairman: Yoko Wagoner DCPIA - Discharge Planning Initial Assessment Updated by [id number]: Yoko Wagoner on 03/24/19 2:30 pm * Is the patient Alert and Oriented? Yes * How many steps to enter\exit or inside your home? * PCP [facility] * [facility] [place] * Preadmission Environment Home with Family * ADLs Independent * Equipment Bedside Commode Shower Chair Walker * List name and contact numbers for known caregivers / representatives who currently or will assist patient after discharge: BRENNON PEREZ [phone] * Verbal permission to speak to the caregivers and representatives has been obtained from the patient. Yes * Community resources currently utilized Home Health * Please name any agencies selected above. [facility] BUT WANTS TO SWITCH TO [facility] * Additional services required to return to the preadmission environment? Yes * Can the patient safely return to the preadmission environment? Yes * Has this patient been hospitalized within the prior 30 days at any hospital? No Coverage Notice Reviewer: [id number] Gianfranco Wagoner Notice Issued Date-Time: 03/24/2019 8:35 Notice Type: Patient Choice Letter Notice Delivered To: Patient Relationship to Patient: Data Collection Specialist Name: Delivery Method: - Yolanda Days: Prior Verbal Notification: Recipient Understood Notice: Yes Recipient Signature: Yes Med Rec Note Co-signed by Attending: Coverage Notice Comment: does NOT want [facility] wants to change to [facility] Reviewer: [id number] Gianfranco Wagoner Notice Issued Date-Time: 04/02/2019 9:15 Notice Type: IM Discharge Notice Notice Delivered To: Patient Relationship to Patient: Data Collection Specialist Name: Delivery Method: HAND - Hand Delivered Yolanda Days: Prior Verbal Notification: Recipient Understood Notice: Yes Recipient Signature: Yes Med Rec Note Co-signed by Attending: Coverage Notice Comment: Last DP export: 04/02/19 12:06 pm Patient Name: ELY PEREZ Page [phone] at 0949 All edits/amendments must be made on the electronic document DICTATION DATE: 04/06/19 0949 EQUIPMENT INSTALLATION PROFESSIONAL: IVONNE 04/06/19 0949 RPT#: [id number] DC DATE:04/02/19 STATUS: DIS IN [facility] [address] [place] [address] END OF REPORT
== END 2019-04-02 15:17 | disposition home health service (06) | DRG 393 ==
LOC: D.ER 17:19 → D.MS 21:45 → OBSVTIME 21:45 → D.MS 03-23 11:27
PROVIDERS: Emergency Medicine; Family Medicine; ADMIT Internal Medicine Nephrology; ATTEND Internal Medicine Nephrology
DX: K52.1 Toxic gastroenteritis and colitis (principal); E43 Unspecified severe protein-calorie malnutrition; C18.9 Malignant neoplasm of colon, unspecified; C78.7 Secondary malignant neoplasm of liver and intrahepatic bile duct; I27.82 Chronic pulmonary embolism; B37.81 Candidal esophagitis; T45.1X5A Adverse effect of antineoplastic and immunosuppressive drugs, initial encounter; R11.2 Nausea with vomiting, unspecified; E86.0 Dehydration; K80.20 Calculus of gallbladder without cholecystitis without obstruction; E87.6 Hypokalemia; E83.42 Hypomagnesemia; Z68.24 Body mass index [BMI] 24.0-24.9, adult; I10 Essential (primary) hypertension; N28.9 Disorder of kidney and ureter, unspecified; R63.0 Anorexia; G51.0 Bell's palsy

== ENCOUNTER 2019-12-03 11:00 | Outpatient (CLI) | payer MEDICARE, BC ==
[~2019-12-03] VITALS: Ht 162.6 cm; Wt 80.9 kg
[~2019-12-03 11:00] MED LIST changes: +CALMOSEPTINE OI71 GM TOPICAL; +COUMADIN2.5 MG PO; +LOMOTIL 2.5-0.1 EAC1 PO; +ONCOLOGY MOUTHWASH PO; +PEPCID AC20 MG PO; +SCOPOLAMINE1 EACH TRANSDERM; +ZYRTEC10 MG PO
[2019-12-03 13:42] VITALS: BP 138/69; Ht 162.6 cm; Wt 80.9 kg
--- NOTE | 2019-12-03 15:14 | NUR ---
PT IS RESTING QUIETLY IN BED. BOTH SIDE RAILS UP. CALL LIGHT W/IN REACH. HAS DR. PACHECO TO DRINK. DENIES PAIN/NEEDS AT THIS TIME. WILL CONTINUE TO MONITOR.
--- NOTE | 2019-12-03 16:15 | NUR ---
FIRST UNIT OF PRBCS ENDED AT 1600. SECOND UNIT OF PRBCS STARTED ON 1610. CALLED RN FROM [facility] TO CHECK OFF UNIT OF PRBCS. PT'S VSS. DENIES PAIN/NEEDS AT THIS TIME. WILL CONTINUE TO MONITOR.
--- NOTE | 2019-12-03 17:25 | NUR ---
SECOND UNIT OF BLOOD FINISHED INFUSING AT 1715. WILL CONTINUE TO MONITOR POST-TRANSFUSION. PT DENIES PAIN/NEEDS AT THIS TIME. VSS.
--- NOTE | 2019-12-03 17:41 | NUR ---
DC INSTRUCTIONS GIVEN TO PT. STATES UNDERSTANDING. DC'D IV CATH FULLY INTACT. PT VOIDED. PT'S FAMILY WILL PICK HER UP AT THE ER ENTRANCE SHORTLY.
--- NOTE | 2019-12-03 17:53 | NUR ---
PT LEFT UNIT VIA WC AT 1747
== END 2019-12-03 17:47 | disposition home or self-care (01) ==
LOC: D.CT 11:00 → D.OPS 11:30 → D.CT 17:47
PROVIDERS: ATTEND Family Medicine
DX: D64.9 Anemia, unspecified (principal); R10.9 Unspecified abdominal pain

== ENCOUNTER 2019-12-28 08:24 | Outpatient (CLI) | payer MEDICARE, BC ==
[~2019-12-28] VITALS: Ht 162.6 cm; Wt 80.9 kg
[2019-12-28 09:23] VITALS: BP 88/52; Ht 162.6 cm; Wt 80.9 kg
--- NOTE | 2019-12-28 14:16 | NUR ---
DC INSTRUCTIONS GIVEN TO PT. STATES UNDERSTANDING. DC' IV CATH. FULLY INTACT. PT LEFT UNIT VIA WC AT 1410
== END 2019-12-28 14:10 | disposition home or self-care (01) ==
LOC: D.OPS 08:24
PROVIDERS: ATTEND Family Medicine
DX: D64.9 Anemia, unspecified (principal)

== ENCOUNTER 2020-02-04 12:52 | Outpatient (CLI) | payer MEDICARE, BC ==
[~2020-02-04] VITALS: Ht 162.6 cm; Wt 80.9 kg
[2020-02-04 14:51] VITALS: BP 105/59; Ht 162.6 cm; Wt 80.9 kg
--- NOTE | 2020-02-04 17:08 | NUR ---
1615 BLOOD INFUSED AND INSTRUCTIONS GIVEN TO PT. IV REMOVED AND PRESSURE HELD. POST INFUSION PAPERS GIVEN TO PT.
== END 2020-02-04 16:35 | disposition home or self-care (01) ==
LOC: D.OPS 12:52
PROVIDERS: ATTEND Clinical Nurse Specialist Adult Health
DX: D64.9 Anemia, unspecified (principal); I10 Essential (primary) hypertension; E78.5 Hyperlipidemia, unspecified

== ENCOUNTER 2020-03-15 23:21 | Inpatient (IN) | payer MEDICARE, BC ==
[~2020-03-15] VITALS: Ht 162.6 cm; Wt 70.0 kg
[2020-03-16 00:52] LABS: BASOPHILS 0.3 % (0-2); EOSINOPHILS 1.4 % (0-7); HEMATOCRIT 28.6 % (36.0-48.0); HEMOGLOBIN 8.5 g/dL (12-16); IMMATURE GRANULOCYTES 0.3 % (0-5); LYMPHOCYTES 20.2 % (15-50); MCH 20.6 pg (26.0-34.0); MCHC 29.7 g/dL (31.0-37.0); MCV 69.4 fL (80.0-100.0); MEAN PLATELET VOLUME 8.6 fL (7.4-10.4); MONOCYTES 11.7 % (2-11); NEUTROPHILS 66.1 % (40-80); RBC 4.12 10x6/uL (4.00-5.40); RDW 18.5 % (11.5-14.5); WBC 7.6 10x3/uL (4.8-10.8)
[2020-03-16 01:02] LABS: PLATELET COUNT 296 10x3/uL (130-400)
[2020-03-16 01:04] LABS: CALC OSMOLALITY 274 mosm/kg (275-300); CARBON DIOXIDE 29.8 mmol/L (21.0-32.0); CHLORIDE - SERUM 101 mmol/L (98-107); CREATININE - SERUM 0.7 mg/dL (0.6-1.3); GLUCOSE 137 mg/dL (74-106); POTASSIUM - SERUM 3.1 mmol/L (3.5-5.1); SODIUM 136 mmol/L (136-145); UREA NITROGEN 14 mg/dL (7-18); eGFR NON AFRICAN AMERICAN 86 mL/min (90-120)
[2020-03-16 01:09] LABS: ALBUMIN 2.9 g/dL (3.4-5.0); ALKALINE PHOSPHATASE 151 U/L (30-120); ALT (SGPT) 13 U/L (10-68); BILIRUBIN - TOTAL 0.22 mg/dL (0.2-1.3); PROTEIN - SERUM 7.1 g/dL (6.4-8.2)
[2020-03-16 01:22] LABS: BILIRUBIN NEGATIVE (NEGATIVE); GLUCOSE NEGATIVE (NEGATIVE); KETONE NEGATIVE (NEGATIVE); NITRITE NEGATIVE (NEGATIVE); UROBILINOGEN NORMAL (NORMAL)
[2020-03-16 01:23] LABS: BACTERIA FEW /hpf (NEGATIVE); EPITHELIAL CELLS 0-5 /hpf (0-5); RED CELLS - URINE 0-5 /hpf (0-5)
[2020-03-16] MEDS ORDERED: PLAVIX75 MG PO (02:51)
[2020-03-16] MEDS ORDERED: BAYER CHEWABLE81 MG PO (02:53)
[2020-03-16] MEDS ORDERED: NORVASC5 MG PO (02:54)
[2020-03-16] MEDS ORDERED: LISINOPRIL20 MG PO (02:55)
[2020-03-16] MEDS ORDERED: ASCORBIC ACID500 MG PO (02:57)
[2020-03-16] MEDS ORDERED: OMEPRAZOLE20 M1 PO (03:00)
[2020-03-16] MEDS ORDERED: MAG-OX 400 MG400 MG PO (03:01)
[2020-03-16] MEDS ORDERED: COLACE100 MG PO (03:01)
[2020-03-16 03:33] VITALS: BP 118/63
--- NOTE | 2020-03-16 03:42 | NUR ---
PATIENT ADMITTED. PATIENT IS ALERT AND ORIENTED. SHE IS ON ROOM AIR. SHE IS COVID POSITIVE 1 WEEK AGO. WE WILL CONTINUE TO MONITOR HER RESPIRATORY STATUS.
--- NOTE | 2020-03-16 07:24 | NUR ---
PT LAYING SUPINE, RR EVEN AND UNLABORED. NO DISTRESS NOTED. CALL LIGHT WITHIN REACH. BED IN LOWEST POSITION. WILL CONTINUE TO MONITOR.
[2020-03-16 12:11] VITALS: BP 136/95
[2020-03-16 13:26] LABS: % SATURATION 3 % (15-55); IRON 9 ug/dl (35-150); TOTAL IRON BIND CAPACITY 278 ug/dl (260-445); UNSAT IRON BIND CAPACITY 269 ug/dl (150-375)
--- NOTE | 2020-03-16 13:26 | NUR ---
I have reviewed this patient and I concur with the Shift Assessment completed by the Licensed Practical Nurse today this shift.
[2020-03-16 13:41] VITALS: BMI 26.5
[2020-03-16 15:10] LABS: INR 0.97 (0.85-1.17); PROTIME 12.8 SECONDS (11.6-15.0)
--- NOTE | 2020-03-16 19:00 | NUR ---
REPORT RECEIVED, WILL CONTINUE POC. PATIENT IS AAOX4, LYING IN SEMI-FOWLERS POSITION. NO S/S OF DISTRESS OBSERVED, RR EVEN AND UNLABORED ON ROOM AIR. PIV TO LT HAND, PATENT, INFUSING BLOOD PRODUCTS AT THIS TIME. PATIENT DENIES NEEDS AT THIS TIME. CL IN REACH, BED LOCKED AND LOWERED. COVID-19 PRECAUTIONS MAINTAINED. WILL CTM.
[2020-03-16 20:12] VITALS: BP 151/73
[2020-03-16 20:15] VITALS: Ht 162.6 cm; Wt 70.0 kg
[2020-03-17] VITALS: BP 136/65
[2020-03-17 05:39] LABS: BASOPHILS 0.3 % (0-2); HEMATOCRIT 33.2 % (36.0-48.0); IMMATURE GRANULOCYTES 0.3 % (0-5); LYMPHOCYTES 20.5 % (15-50); MCH 21.9 pg (26.0-34.0); MCHC 30.1 g/dL (31.0-37.0); MONOCYTES 12.2 % (2-11); NEUTROPHILS 65.7 % (40-80); PLATELET COUNT 278 10x3/uL (130-400); RBC 4.56 10x6/uL (4.00-5.40); RDW 19.7 % (11.5-14.5)
[2020-03-17 05:43] LABS: MCV 72.8 fL (80.0-100.0)
[2020-03-17 06:01] LABS: ALBUMIN 2.7 g/dL (3.4-5.0); ALKALINE PHOSPHATASE 146 U/L (30-120); BILIRUBIN - TOTAL 0.28 mg/dL (0.2-1.3); CARBON DIOXIDE 26.4 mmol/L (21.0-32.0); CHLORIDE - SERUM 101 mmol/L (98-107); CREATININE - SERUM 0.6 mg/dL (0.6-1.3); GLUCOSE 122 mg/dL (74-106); POTASSIUM - SERUM 3.4 mmol/L (3.5-5.1); PROTEIN - SERUM 6.8 g/dL (6.4-8.2); SODIUM 135 mmol/L (136-145); eGFR NON AFRICAN AMERICAN > 90 mL/min (90-120)
[2020-03-17 06:08] LABS: ALT (SGPT) 8 U/L (10-68); CALC OSMOLALITY 269 mosm/kg (275-300); UREA NITROGEN 10 mg/dL (7-18)
[2020-03-17 08:50] VITALS: BP 129/65
--- NOTE | 2020-03-17 15:13 | NUR ---
I have reviewed this patient and I concur with the Shift Assessment completed by the Licensed Practical Nurse today this shift.
[2020-03-17 21:17] VITALS: BP 147/69
[2020-03-17 23:30] VITALS: BP 140/74
--- NOTE | 2020-03-18 03:57 | NUR ---
I have reviewed this patient and I concur with the Shift Assessment completed by the Licensed Practical Nurse today this shift.
[2020-03-18 05:53] LABS: CALC OSMOLALITY 270 mosm/kg (275-300); CALCIUM 8.2 mg/dL (8.5-10.1); CARBON DIOXIDE 26.1 mmol/L (21.0-32.0); CHLORIDE - SERUM 101 mmol/L (98-107); CREATININE - SERUM 0.7 mg/dL (0.6-1.3); GLUCOSE 110 mg/dL (74-106); POTASSIUM - SERUM 3.3 mmol/L (3.5-5.1); SODIUM 136 mmol/L (136-145); eGFR NON AFRICAN AMERICAN 86 mL/min (90-120)
[2020-03-18 05:54] LABS: UREA NITROGEN 7 mg/dL (7-18)
[2020-03-18 05:55] LABS: BASOPHILS 0.1 % (0-2); HEMATOCRIT 35.4 % (36.0-48.0); HEMOGLOBIN 10.6 g/dL (12-16); IMMATURE GRANULOCYTES 0.3 % (0-5); LYMPHOCYTES 22.9 % (15-50); MCHC 29.9 g/dL (31.0-37.0); MCV 73.4 fL (80.0-100.0); MEAN PLATELET VOLUME 9.4 fL (7.4-10.4); MONOCYTES 12.1 % (2-11); NEUTROPHILS 63.6 % (40-80); PLATELET COUNT 316 10x3/uL (130-400); RBC 4.82 10x6/uL (4.00-5.40); RDW 20.2 % (11.5-14.5); WBC 7.2 10x3/uL (4.8-10.8)
--- NOTE | 2020-03-18 07:26 | NUR ---
WALKING ROUNDS COMPLETE, PT RESTING IN BED, RESP EVEN AND UNLABORED, PT DENIES PAIN OR NEEDS, BED LOW AND LOCKED, SR UP X2, CALL LIGHT IN REACH, WILL MONITOR
--- NOTE | 2020-03-18 08:55 | NUR ---
GAVE PT SCHEDULED MEDS, PT SITTING UP ON SIDE OF BED EATING BREAKFAST, PT DENIES PAIN OR NEEDS AT THIS TIME, SR UP X2, CALL LIGHT IN REACH, BED LOW AND LOCKED, WILL MONITOR
[2020-03-18 09:07] VITALS: BP 157/72
--- NOTE | 2020-03-18 11:21 | NUR ---
GAVE PT NEW MEDS, EXPLAINED TO PT ABOUT MEDS, ALL QUESTIONS ANSWERED, NO OTHER NEEDS VOICED, OR NOTED, CALL LIGHT IN REACH, WILL MONITOR
--- NOTE | 2020-03-18 12:49 | NUR ---
GAVE PT ZOFRAN FOR NAUSEA AND ALSO REPLACED POTASSIUM
[2020-03-18 13:44] VITALS: BP 141/77
--- NOTE | 2020-03-18 15:39 | NUR ---
GAVE PT MORPHINE 2MG IVP FOR PAIN, RATES PAIN 7/10 IN ABD, ALSO REPLACED POTASSIUM, NO OTHER NEEDS VOICED, WILL MONITOR
[2020-03-18 16:50] VITALS: BP 142/77
--- NOTE | 2020-03-18 18:08 | NUR ---
PT HAS DISCHARGE ORDERS, PT HAS TO WAIT TIL TOMORROW TO GET RIDE HOME,
--- NOTE | 2020-03-18 19:00 | NUR ---
PER DAY SHIFT RN, PT'S GRANDDAUGHTER IS NOT ABLE TO COME AND PICK PT AND HER , ALSO A PATIENT, UP TONIGHT DUE TO SOME FAMILY ISSUES. PLANS ARE FOR GRANDDAUGHTER TO ARRIVE IN THE AM FOR BOTH PATIENT AND HER SPOUSE IN 2127.
[2020-03-18 20:00] VITALS: BP 124/65
--- NOTE | 2020-03-18 20:00 | NUR ---
INITIAL ROUNDS AND ASSESSMENT COMPLETED. PT RESTING IN BED. O2 SAT 88% ON ROOM AIR. PLACED BACK ON O2 @ 2L/NC AND SAT UP TO 92%. REPORTED TO RT THAT PT PLACED BACK ON O2. IVF NS @ 50ML/HR INFUSING TO LEFT WRIST. HAS COLOSTOMY AND PERFORMS SELF CARE OR NOTIFYS STAFF IF SHE NEEDS ASSIST. CPOC. COVID ISOLATION IN PLACE.
[2020-03-19] VITALS: BP 118/60
[2020-03-19 07:25] LABS: CALC OSMOLALITY 269 mosm/kg (275-300); CALCIUM 8.4 mg/dL (8.5-10.1); CARBON DIOXIDE 28.8 mmol/L (21.0-32.0); CHLORIDE - SERUM 100 mmol/L (98-107); CREATININE - SERUM 0.6 mg/dL (0.6-1.3); GLUCOSE 107 mg/dL (74-106); POTASSIUM - SERUM 3.2 mmol/L (3.5-5.1); SODIUM 136 mmol/L (136-145); UREA NITROGEN 6 mg/dL (7-18); eGFR NON AFRICAN AMERICAN > 90 mL/min (90-120)
[2020-03-19 08:04] LABS: BASOPHILS 0.1 % (0-2); EOSINOPHILS 0.8 % (0-7); HEMATOCRIT 34.5 % (36.0-48.0); HEMOGLOBIN 10.4 g/dL (12-16); IMMATURE GRANULOCYTES 0.3 % (0-5); LYMPHOCYTES 21.7 % (15-50); MCH 22.3 pg (26.0-34.0); MCHC 30.1 g/dL (31.0-37.0); MCV 73.9 fL (80.0-100.0); MEAN PLATELET VOLUME 9.2 fL (7.4-10.4); MONOCYTES 12.5 % (2-11); NEUTROPHILS 64.6 % (40-80); PLATELET COUNT 302 10x3/uL (130-400); RBC 4.67 10x6/uL (4.00-5.40); RDW 20.6 % (11.5-14.5); WBC 7.8 10x3/uL (4.8-10.8)
--- NOTE | 2020-03-19 08:58 | NUR ---
GAVE PT SCHEDULED MEDS, PT VOICES SHE DOESNT WANT TO EAT BREAKFAST THIS MORNING, NO OTHER NEEDS VOICED, WILL CONTINUE TO MONITOR, BED LOW AND LOCKED, CALL LIGHT IN REACH
[2020-03-19 09:31] VITALS: BP 136/71
--- NOTE | 2020-03-19 10:15 | MORECARE ---
CASE MANAGEMENT DISCHARGE SUMMARY PATIENT: ELY MAY UNIT: [id number] ADM DATE: 03/16/20 AGE: 79 : 42 SEX: F ROOM/BED: D.5122 AUTHOR: JOSE,DOC PHYSICIAN: REFERRING PHYSICIAN: KRISTA JARVIS MD DATE OF SERVICE: 03/19/20 Discharge Plan Patient Name: ELY MAY Facility: [facility]:[place] : 1940 Planned Disposition: Retirement Facility Anticipated Discharge Date: Discharge Date: Expected LOS: Initial Reviewer: [email or web address] Initial Review Date: 03/16/2020 Generated: 03/19/20 11:15 am Comments DCP- Discharge Planning Updated by [email or web address]: Liliane Palma on 03/19/20 8:[address] CM SPOKE WITH ROMAIN WHO STATES SHE WOULD LIKE REFERRAL SENT TO [facility]. CM CALLED TEE BLAKE AT [phone] AND FAXED REFERRAL TO [phone]. LILIANE PALMA DCP- Discharge Planning Updated by [email or web address]: Liliane Palma on 03/19/20 7:[address] Patient Name: ELY MAY Admission Status: ER Accout number: [id number] Admission Date: 03-16-2020 : 1940 Admission Diagnosis:ANEMIA, UNSPECIFIED Attending: KRISTA WARNER Current LOS: 3 Anticipated DC Date: Planned Disposition: Primary Insurance: MEDICARE A & B Discharge Planning Comments: Discharge Planning Comments: CM called patient via phone, and spoke about discharge plan. Patient states she lives with her Kapilil alone, but has her granddaughter to check up on her daily. Patient requests to have an ambulance transport her back home. CM educated pt about EMS services are not able to transport home. Patient states she will not go home on a taxi, because she is afraid. Patient asked if CM will call her grand daughter for a ride home. CM called Romain grand daughter at [phone] to discuss dc arrangements. Romain states she is the only person in the family that does not have Covid. States she will pick the patient and her up tonite, and if not she will pick them up in the morning. At discharge patient plans to return home and feels this is a safe discharge. CM discussed availability of home health, rehab services, and medical equipment. Romain states they are looking for a private caregiver to stay with the patient and his . Romain states she lives next door and can check up on them. 03/19/20 at 0815 CM received call from Romain about discharge. 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 States her father is worried about being in a car with covid for a long time. Romain states she will pay to put her grandparents in a cab. CM educated Romain on [facility] recommendations for a mask for herself and her grandparents while in the car. CM spoke of the need for Mr May to have oxygen for the ride home. Romain states his portable tank is in his house, and we will need to give him some for the ride home. CM instructed Romain that the hospital is unable to provide portable oxygen for the ride home. Romain states she will speak with her father and call CM with updates. CM will continue to assist with DC planning. DC IMM explained via phone. Romain verbalized understanding Test Automation Architect: Liliane Palma External Providers External Provider: [facility] Next Contact Date: Service Request Date: Service Type: Resolution: Reviewer: Comments: Coverage Notice Reviewer: [id number] - Liliane Palma Notice Issued Date-Time: 03/19/2020 8:30 Notice Type: IM Discharge Notice Notice Delivered To: Patient Relationship to Patient: Press Helper Name: Delivery Method: - Yolanda Days: Prior Verbal Notification: Recipient Understood Notice: Recipient Signature: Med Rec Note Co-signed by Attending: Coverage Notice Comment: Patient Name: ELY MAY Page [id number] at 1015 All edits/amendments must be made on the electronic document DICTATION DATE: 03/19/20 1015 MILL TENDER SECOND OPERATOR: IVONNE 03/19/20 1015 RPT#: [id number] DC DATE: STATUS: ADM IN [facility] [address] [place] [address] END OF REPORT
--- NOTE | 2020-03-19 10:28 | MORECARE ---
CASE MANAGEMENT DISCHARGE SUMMARY PATIENT: ELY MAY UNIT: [id number] ADM DATE: 03/16/20 AGE: 79 : 42 SEX: F ROOM/BED: D.8450 AUTHOR: JOSEDOC PHYSICIAN: REFERRING PHYSICIAN: KRISTA JARVIS MD DATE OF SERVICE: 03/19/20 Discharge Plan Patient Name: ELY MAY Facility: [facility]:[place] : 1940 Planned Disposition: Intermediate Facility Anticipated Discharge Date: Discharge Date: Expected LOS: Initial Reviewer: [id number] Initial Review Date: 03/16/2020 Generated: 03/19/20 11:27 am Comments DCP- Discharge Planning Updated by [email or web address]: Liliane Palma on 03/19/20 9:[address] Patient Name: ELY MAY Encounter No: [id number] : 1940 Primary Insurance: MEDICARE A & B Anticipated DC Date: Planned Disposition: Intermediate Facility External Planned Provider: : DCP follow-up note:CM spoke with Tee BLAKE from [facility] at [phone] who states she will accept the patient in a [facility] bed. Nursing can call report to the covga unit at [phone]. Patient and family in agreement with discharge plan. Updated orders and requested information faxed to [facility]. Patient will be transported by EMS. Liliane Palma DCP- Discharge Planning Updated by [email or web address]: Liliane Palma on 03/19/20 8:[address] CM SPOKE WITH ROMAIN WHO STATES SHE WOULD LIKE REFERRAL SENT TO [facility]. CM CALLED TEE BLAKE AT [phone] AND FAXED REFERRAL TO [phone]. LILIANE PALMA DCP- Discharge Planning Updated by [email or web address]: Liliane Palma on 03/19/20 7:[address] Patient Name: ELY MAY Admission Status: ER Accout number: [id number] Admission Date: 03-16-2020 : 1940 Admission Diagnosis:ANEMIA, UNSPECIFIED Attending: KRISTA WARNER Current LOS: 3 Anticipated DC Date: Planned Disposition: Primary Insurance: MEDICARE A & B Discharge Planning Comments: Discharge Planning Comments: CM called patient via phone, and spoke about discharge plan. Patient states she lives with her Jonathan alone, but has her granddaughter to check up on her daily. Patient requests to have an ambulance transport her back home. CM educated pt about EMS services are not able to transport home. Patient states she will not go home on a taxi, because she is afraid. Patient asked if CM will call her grand daughter for a ride home. CM called Romain grand daughter at [phone] to discuss dc arrangements. Romain states she is the only person in the family that does not have Covid. States she will pick the patient and her up tonite, and if not she will pick them up in the morning. At discharge patient plans to return home and feels this is a safe discharge. CM discussed availability of home health, rehab services, and medical equipment. Romain states they are looking for a private caregiver to stay with the patient and his . Romain states she lives next door and can check up on them. 03/19/20 at 0815 CM received call from Romain about discharge. 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 States her father is worried about being in a car with covid for a long time. Romain states she will pay to put her grandparents in a cab. CM educated Romain on CDC recommendations for a mask for herself and her grandparents while in the car. CM spoke of the need for Mr May to have oxygen for the ride home. Romain states his portable tank is in his house, and we will need to give him some for the ride home. CM instructed Romain that the hospital is unable to provide portable oxygen for the ride home. Romain states she will speak with her father and call CM with updates. CM will continue to assist with DC planning. DC IMM explained via phone. Romain verbalized understanding Design Manager: Liliane Palma Coverage Notice Reviewer: [id number] - Liliane Palma Notice Issued Date-Time: 03/19/2020 8:30 Notice Type: IM Discharge Notice Notice Delivered To: Patient Relationship to Patient: Physical Therapy Instructor Name: Delivery Method: - Yolanda Days: Prior Verbal Notification: Recipient Understood Notice: Recipient Signature: Med Rec Note Co-signed by Attending: Coverage Notice Comment: Last DP export: 03/19/20 9:15 a Patient Name: ELY MAY Page [id number] at 1028 All edits/amendments must be made on the electronic document DICTATION DATE: 03/19/20 1027 HOSE OPERATOR: IVONNE 03/19/20 1027 RPT#: [id number] DC DATE: STATUS: ADM IN [facility] [address] [place] [address] END OF REPORT
--- NOTE | 2020-03-19 10:41 | MORECARE ---
CASE MANAGEMENT DISCHARGE SUMMARY PATIENT: ELY MAY UNIT: [id number] ADM DATE: 03/16/20 AGE: 79 : 42 SEX: F ROOM/BED: D.5210 AUTHOR: JOSE,DOC PHYSICIAN: REFERRING PHYSICIAN: KRISTA JARVIS MD DATE OF SERVICE: 03/19/20 Discharge Plan Patient Name: ELY MAY Facility: [facility]:[place] : 1940 Planned Disposition: Care Home Facility Anticipated Discharge Date: Discharge Date: Expected LOS: Initial Reviewer: [email or web address] Initial Review Date: 03/16/2020 Generated: 03/19/20 11:41 am Comments DCP- Discharge Planning Updated by [email or web address]: Liliane Palma on 03/19/20 9:[address] CM SPOKE WITH ROMAIN WHO STATES SHE WOULD LIKE REFERRAL SENT TO [facility]. CM CALLED TEE LOU AT [phone] AND FAXED REFERRAL TO [phone]. LILIANE PALMA DCP- Discharge Planning Updated by [id number]: Liliane Palma on 03/19/20 9:[address] Patient Name: ELY MAY Encounter No: [id number] : 1940 Primary Insurance: MEDICARE A & B Anticipated DC Date: Planned Disposition: Care Home Facility External Planned Provider: : DCP follow-up note:CM spoke with Tee BLAKE from [facility] at [phone] who states she will accept the patient in a [facility] bed. Nursing can call report to the covid unit at [phone]. Patient and family in agreement with discharge plan. Updated orders and requested information faxed to SNF. Patient will be transported by EMS. Liliane Palma DCP- Discharge Planning Updated by [email or web address]: Liliane Palma on 03/19/20 7:[address] Patient Name: LEY MAY Admission Status: ER Accout number: [id number] Admission Date: 03-16-2020 : 1940 Admission Diagnosis:ANEMIA, UNSPECIFIED Attending: KRISTA WARNER Current LOS: 3 Anticipated DC Date: Planned Disposition: Primary Insurance: MEDICARE A & B Discharge Planning Comments: Discharge Planning Comments: CM called patient via phone, and spoke about discharge plan. Patient states she lives with her Jonathan alone, but has her granddaughter to check up on her daily. Patient requests to have an ambulance transport her back home. CM educated pt about EMS services are not able to transport home. Patient states she will not go home on a taxi, because she is afraid. Patient asked if CM will call her grand daughter for a ride home. CM called Romain grand daughter at [phone] to discuss dc arrangements. Romain states she is the only person in the family that does not have Covid. States she will pick the patient and her up tonite, and if not she will pick them up in the morning. At discharge patient plans to return home and feels this is a safe discharge. CM discussed availability of home health, rehab services, and medical equipment. Romain states they are looking for a private caregiver to stay with the patient and his . Romain states she lives next door and can check up on them. 03/19/20 at 0815 CM received call from Romain about discharge. Romain states she works at a [employer] and is too afraid of getting covid. States her father is worried about being in a car with covid for a long time. Romain states she will pay to put her grandparents in a cab. CM educated Romain on CDC recommendations for a mask for herself and her grandparents while in the car. CM spoke of the need for Mr May to have oxygen for the ride home. Romain states his portable tank is in his house, and we will need to give him some for the ride home. CM instructed Romain that the hospital is unable to provide portable oxygen for the ride home. Romain states she will speak with her father and call CM with updates. CM will continue to assist with DC planning. DC IMM explained via phone. Romain verbalized understanding Trim And Burr Operator: Liliane Palma Coverage Notice Reviewer: [id number] - Liliane Palma Notice Issued Date-Time: 03/19/2020 8:30 Notice Type: IM Discharge Notice Notice Delivered To: Patient Relationship to Patient: Pea Viner Mechanic Name: Delivery Method: - Yolanda Days: Prior Verbal Notification: Recipient Understood Notice: Recipient Signature: Med Rec Note Co-signed by Attending: Coverage Notice Comment: Last DP export: 03/19/20 9:28 a Patient Name: ELY MAY Page [id number] at 1041 All edits/amendments must be made on the electronic document DICTATION DATE: 03/19/20 1041 COATING MACHINE HELPER: IVONNE 03/19/20 1041 RPT#: [id number] DC DATE: STATUS: ADM IN [facility] [address] [place] [address] END OF REPORT
--- NOTE | 2020-03-19 11:19 | NUR ---
CALLED REPORT TO JOYCE WHITE AT [facility], ALL QUESTIONS ANSWERED, GAVE CALL BACK NUMBER IF ANY OTHER QUESTION NEED ANSWERED,
--- NOTE | 2020-03-19 12:38 | NUR ---
GAVE REPORT TO AMBULANCE SERVICE, ALL PERSONAL BELONGINGS RETURNED TO PT, GLASSES, DENTURES, PURSE AND PHONE
--- NOTE | 2020-03-20 09:30 | MORECARE ---
CASE MANAGEMENT DISCHARGE SUMMARY PATIENT: ELY MAY UNIT: [id number] ADM DATE: 03/16/20 AGE: 79 : 42 SEX: F ROOM/BED: D.6620 AUTHOR: JOSEDOC PHYSICIAN: REFERRING PHYSICIAN: KRISTA JARVIS MD DATE OF SERVICE: 03/20/20 Discharge Plan Patient Name: ELY MAY Facility: [facility]:[place] : 1940 Planned Disposition: Half-Way Facility Anticipated Discharge Date: Discharge Date: 03/19/2020 Expected LOS: Initial Reviewer: [email or web address] Initial Review Date: 03/16/2020 Generated: 03/20/20 10:29 am Comments DCP- Discharge Planning Updated by [id number]: Liliane Palma on 03/19/20 9:[address] CM SPOKE WITH ROMAIN WHO STATES SHE WOULD LIKE REFERRAL SENT TO [facility]. CM CALLED TEE BLAKE AT [phone] AND FAXED REFERRAL TO [phone]. LILIANE PALMA DCP- Discharge Planning Updated by [id number]: Liliane Palma on 03/19/20 9:[address] Patient Name: ELY MAY Encounter No: [id number] : 1940 Primary Insurance: MEDICARE A & B Anticipated DC Date: Planned Disposition: Half-Way Facility External Planned Provider: : DCP follow-up note:CM spoke with Tee BLAKE from [facility] at [phone] who states she will accept the patient in a [facility] bed. Nursing can call report to the covid unit at [phone]. Patient and family in agreement with discharge plan. Updated orders and requested information faxed to SNF. Patient will be transported by EMS. Liliane Palma DCP- Discharge Planning Updated by [id number]: Liliane Palma on 03/19/20 7:[address] Patient Name: ELY MAY Admission Status: ER Accout number: [id number] Admission Date: 03-16-2020 : 1940 Admission Diagnosis:ANEMIA, UNSPECIFIED Attending: KRISTA WARNER Current LOS: 3 Anticipated DC Date: Planned Disposition: Primary Insurance: MEDICARE A & B Discharge Planning Comments: Discharge Planning Comments: CM called patient via phone, and spoke about discharge plan. Patient states she lives with her Jonathan alone, but has her granddaughter to check up on her daily. Patient requests to have an ambulance transport her back home. CM educated pt about EMS services are not able to transport home. Patient states she will not go home on a taxi, because she is afraid. Patient asked if CM will call her grand daughter for a ride home. CM called Romain grand daughter at [phone] to discuss dc arrangements. Romain states she is the only person in the family that does not have Covid. States she will pick the patient and her up tonite, and if not she will pick them up in the morning. At discharge patient plans to return home and feels this is a safe discharge. CM discussed availability of home health, rehab services, and medical equipment. Romain states they are looking for a private caregiver to stay with the patient and his . Romain states she lives next door and can check up on them. 03/19/20 at 0815 CM received call from Romain about discharge. Romain states she works at a [employer] and is too afraid of getting covid. States her father is worried about being in a car with covid for a long time. Romain states she will pay to put her grandparents in a cab. CM educated Romain on CDC recommendations for a mask for herself and her grandparents while in the car. CM spoke of the need for Mr May to have oxygen for the ride home. Romain states his portable tank is in his house, and we will need to give him some for the ride home. CM instructed Romain that the hospital is unable to provide portable oxygen for the ride home. Romain states she will speak with her father and call CM with updates. CM will continue to assist with DC planning. DC IMM explained via phone. Romain verbalized understanding Hadoop Application Developer: Liliane Palma Coverage Notice Reviewer: [id number] - Liliane Palma Notice Issued Date-Time: 03/19/2020 8:30 Notice Type: IM Discharge Notice Notice Delivered To: Patient Relationship to Patient: Wire Roller Name: Delivery Method: - Yolanda Days: Prior Verbal Notification: Recipient Understood Notice: Recipient Signature: Med Rec Note Co-signed by Attending: Coverage Notice Comment: Last DP export: 03/19/20 9:41 a Patient Name: ELY MAY Page [id number] at 0930 All edits/amendments must be made on the electronic document DICTATION DATE: 03/20/20928 ASSET MANAGER: IVONNE 03/20/20928 RPT#: [id number] DC DATE:03/19/20 STATUS: DIS IN [facility] [address] [place] [address] END OF REPORT
== END 2020-03-19 12:53 | DRG 811 ==
LOC: D.ER 23:21 → D.M2 03-16 01:38
PROVIDERS: Emergency Medicine; Family Medicine; ADMIT Family Medicine Adult Medicine; ATTEND Family Medicine Adult Medicine
DX: D50.9 Iron deficiency anemia, unspecified (principal); U07.1 COVID-19; C18.9 Malignant neoplasm of colon, unspecified; C78.7 Secondary malignant neoplasm of liver and intrahepatic bile duct; I10 Essential (primary) hypertension; K21.9 Gastro-esophageal reflux disease without esophagitis; I25.10 Atherosclerotic heart disease of native coronary artery without angina pectoris; E87.6 Hypokalemia